=== PATIENT | female | born 1975 | race Caucasian/White ===

== ENCOUNTER 2018-06-30 16:10 | Emergency (ER) | payer SELFPAY ==
--- NOTE | 2018-06-30 17:29 | ER Document Report ---
ED Medical Screen (RME) - General Chief Complaint: Abdominal Pain Stated Complaint: ABDOMINAL PAIN,URINARY PAIN Time Seen by Provider: 06/30/18 17:23 Primary Care Provider: DESI VILLANUEVA MD [Primary Care Provider] - Follow up as needed Notes: Patient is a 42-year-old female presents to the emergency department for an hematuria. Patient is also complaining of generalized malodorous vaginal discharge. Patient states she does have an extensive history with urinary tract infections. Patient is denying any vomiting or fever. Patient states "I think something fell out." States she feels as though she has a bulge near her vagina. Physical exam of genitalia not able to be performed in triage. GENERAL: Alert, interacts well. No acute distress. ABDOMEN: Soft, non-tender. Non-distended. Bowel sounds present in all 4 quadrants. I have greeted and performed a rapid initial assessment of this patient. A comprehensive ED assessment and evaluation of the patient, analysis of test results and completion of the medical decision making process will be conducted by additional ED providers. This medical record was dictated with voice recognizing software. There may be grammatical, syntax errors that are unintended. TRAVEL OUTSIDE OF THE [place] IN LAST 30 DAYS: No - Related Data Allergies/Adverse Reactions: metronidazole [From Flagyl] Allergy (Severe, Verified 06/30/18 16:13) Anaphylaxis Metronidazole HCl [From Flagyl] Allergy (Severe, Verified 06/30/18 16:13) Anaphylaxis trazodone [Trazodone] Allergy (Severe, Verified 06/30/18 16:13) ITCHING/HIVES Past Medical History - Social History Frequency of alcohol use: None Drug Abuse: None - Past Medical History Cardiac Medical History: Reports: Hx Coronary Artery Disease - high cholesterol, Hx Hypercholesterolemia Denies: Hx Hypertension Pulmonary Medical History: Reports: Hx COPD - abcess in lung, Hx Pneumonia Denies: Hx Asthma, Hx Bronchitis Neurological Medical History: Reports: Hx Seizures - LAST ON ABOUT 4 MONTHS AGO. Denies: Hx Cerebrovascular Accident Renal/ Medical History: Denies: Hx Peritoneal Dialysis Musculoskeltal Medical History: Denies Hx Arthritis Past Surgical History: Reports: Hx Hysterectomy - Immunizations Hx Diphtheria, Pertussis, Tetanus Vaccination: No Physical Exam - Vital signs Vitals: Temp Pulse Resp BP Pulse Ox 98.1 F 73 16 127/74 H 100 06/30/18 16:22 06/30/18 16:22 06/30/18 16:22 06/30/18 16:22 06/30/18 16:22 Course - Vital Signs Vital signs: Temp Pulse Resp BP Pulse Ox 98.1 F 73 16 127/74 H 100 06/30/18 16:22 06/30/18 16:22 06/30/18 16:22 06/30/18 16:22 06/30/18 16:22 Doctor's Discharge - Discharge Referrals: DESI VILLANUEVA MD [Primary Care Provider] - Follow up as needed
[2018-06-30 18:07] LABS: APPEARANCE,URINE SLIGHTLY-CLOUDY; BILIRUBIN,URINE NEGATIVE (NEGATIVE); CALCIUM OXALATE CRYSTALS,URINE MODERATE /HPF; COLOR,URINE AMBER; GLUCOSE, URINE NEGATIVE (NEGATIVE); KETONES,URINE TRACE mg/dL (NEGATIVE); LEUKOCYTE ESTERASE,URINE TRACE (NEGATIVE); NITRITE,URINE POSITIVE (NEGATIVE); PROTEIN,URINE 30 mg/dL (NEGATIVE); URINE SPECIFIC GRAVITY 1.028
--- NOTE | 2018-06-30 21:02 | ER Document Report ---
ED GI/ - General Chief Complaint: Abdominal Pain Stated Complaint: ABDOMINAL PAIN,URINARY PAIN Time Seen by Provider: 06/30/18 17:23 Primary Care Provider: DESI VILLANUEVA MD [ACTIVE STAFF] - Follow up as needed Notes: Patient is a 42-year-old female that comes emergency department for chief complaint of discomfort with urination and malodorous vaginal discharge. She states that she gets acute urinary tract infections. She is sexually active. She has had a partial hysterectomy including removal of the cervix. She states she felt like air came out vaginally when she was expecting it to come out rectally but she is not certain of this. She denies seeing any tissue prolapsed out of the vagina. She denies abdominal pain, flank pain, fever/chills, nausea/vomiting. TRAVEL OUTSIDE OF THE [place] IN LAST 30 DAYS: No - Related Data Allergies/Adverse Reactions: metronidazole [From Flagyl] Allergy (Severe, Verified 06/30/18 16:13) Anaphylaxis Metronidazole HCl [From Flagyl] Allergy (Severe, Verified 06/30/18 16:13) Anaphylaxis trazodone [Trazodone] Allergy (Severe, Verified 06/30/18 16:13) ITCHING/HIVES Past Medical History - General Information source: Patient - Social History Smoking Status: Current Every Day Smoker Smoking Education Provided: Yes - <3 min Frequency of alcohol use: None Drug Abuse: None Lives with: Family Family History: Reviewed & Not Pertinent, Other Patient has suicidal ideation: No Patient has homicidal ideation: No - Past Medical History Cardiac Medical History: Reports: Hx Coronary Artery Disease - high cholesterol, Hx Hypercholesterolemia Denies: Hx Hypertension Pulmonary Medical History: Reports: Hx COPD - abcess in lung, Hx Pneumonia Denies: Hx Asthma, Hx Bronchitis Neurological Medical History: Reports: Hx Seizures - LAST ON ABOUT 4 MONTHS AGO. Denies: Hx Cerebrovascular Accident Renal/ Medical History: Denies: Hx Peritoneal Dialysis Musculoskeletal Medical History: Denies Hx Arthritis Past Surgical History: Reports: Hx Hysterectomy - Immunizations Immunizations up to date: Yes Hx Diphtheria, Pertussis, Tetanus Vaccination: Yes Hx Pneumococcal Vaccination: 12/06/08 Review of Systems - Review of Systems Constitutional: No symptoms reported EENT: No symptoms reported Cardiovascular: No symptoms reported Respiratory: No symptoms reported Gastrointestinal: See HPI Genitourinary: See HPI Female Genitourinary: See HPI Musculoskeletal: No symptoms reported Skin: No symptoms reported Hematologic/Lymphatic: No symptoms reported Neurological/Psychological: No symptoms reported Physical Exam - Vital signs Vitals: Temp Pulse Resp BP Pulse Ox 98.1 F 73 16 127/74 H 100 06/30/18 16:22 06/30/18 16:22 06/30/18 16:22 06/30/18 16:22 06/30/18 16:22 - Notes Notes: GENERAL: Alert, interacts well. No acute distress. HEAD: Normocephalic, atraumatic. EYES: Pupils equal, round, and reactive to light. Extraocular movements intact. ENT: Oral mucosa moist, tongue midline. Oropharynx unremarkable. Airway patent. NECK: Full range of motion. Supple. Trachea midline. LUNGS: Clear to auscultation bilaterally, no wheezes, rales, or rhonchi. No respiratory distress. HEART: Regular rate and rhythm. No murmur ABDOMEN: Soft, non-tender. Non-distended. Bowel sounds present in all 4 quadrants. GENITOURINARY: External exam with no concerning findings. Vaginal exam shows whitish vaginal discharge, no tenderness, no lesions, otherwise unremarkable. Cuff is intact. Exam performed with Inez RN at bedside. EXTREMITIES: Moves all 4 extremities spontaneously. No edema, normal radial and dorsalis pedis pulses bilaterally. No cyanosis. BACK: no cervical, thoracic, lumbar midline tenderness. No saddle anesthesia, normal distal neurovascular exam. NEUROLOGICAL: Alert and oriented x3. Normal speech. Cranial nerves II through XII grossly intact. PSYCH: Normal affect, normal mood. SKIN: Warm, dry, normal turgor. No rashes or lesions noted. Course - Re-evaluation Re-evalutation: Nontender abdomen. Unremarkable vitals. Patient is well-appearing. Physical examination is most consistent with bacterial vaginosis, there is no evidence of disruption of the cuff status post hysterectomy, there is no evidence of prolapse. Urine does suggest an infection, culture placed, placed on Keflex. What also is consistent with bacterial vaginosis, pelvic exam otherwise unremarkable. Discussed with patient, discussed treatment options, patient is allergic to Flagyl, given topical clindamycin. Discussed expectations, primary care follow-up, return precautions. She states understanding and agreement. - Vital Signs Vital signs: Temp Pulse Resp BP Pulse Ox 97.7 F 72 16 121/67 99 06/30/18 22:50 06/30/18 22:50 06/30/18 22:50 06/30/18 22:50 06/30/18 22:50 - Laboratory Laboratory results interpreted by me: 06/30/18 16:35 Urine Protein 30 H Urine Ketones TRACE H Urine Blood SMALL H Urine Nitrite POSITIVE H Urine Urobilinogen 4.0 H Ur Leukocyte Esterase TRACE H Discharge - Discharge Clinical Impression: Dysuria, Vaginal discharge, Vaginal symptom Condition: Stable Disposition: HOME, SELF-CARE Additional Instructions: Your evaluation is consistent with bacterial vaginosis and a urinary tract infection. Use the topical to treat the bacterial vaginosis, use the Keflex to treat the urinary tract infection. Follow-up with primary care for additional evaluation and management. Return if you worsen including abdominal pain, vomiting, fever/chills, or any other concerning symptoms. Prescriptions: Cephalexin Monohydrate [Keflex 500 mg Capsule] 500 mg PO BID 7 Days #14 capsule Clindamycin Phosphate [Cleocin] 40 gm VG ASDIR PRN #1 [email or web address] PRN Reason: Referrals: DESI VILLANUEVA MD [ACTIVE STAFF] - Follow up as needed
[2018-06-30 21:30] LABS: BACTERIA (WET MOUNT) 4+ BACTERIA SEEN; EPITHELIALS (WET MOUNT) 4+ EPITHELIALS SEEN; RBCS (WET MOUNT) NO RBCS SEEN; T.VAGINALIS (WET MOUNT) NO TRICHOMONAS SEEN; WBCS (WET MOUNT) RARE WBCS SEEN; YEAST (WET MOUNT) NO YEAST SEEN
[2018-06-30] MEDS ORDERED: CEPHALEXIN 500 MG CAPSULE PO ONE (21:48)
[2018-06-30 22:57] VITALS: BP 121/67
[2018-06-30 22:57] LABS: CHLAM PCR NOT DETECTED (NOT DETECT); GON PCR NOT DETECTED (NOT DETECT)
== END 2018-06-30 22:50 | disposition home or self-care (01) ==
LOC: ER 16:10
DX: R30.0 Dysuria (principal); N89.8 Other specified noninflammatory disorders of vagina; F17.200 Nicotine dependence, unspecified, uncomplicated; I25.10 Atherosclerotic heart disease of native coronary artery without angina pectoris; J44.9 Chronic obstructive pulmonary disease, unspecified; Z87.440 Personal history of urinary (tract) infections; Z90.711 Acquired absence of uterus with remaining cervical stump; Z88.1 Allergy status to other antibiotic agents; Z88.8 Allergy status to other drugs, medicaments and biological substances
CPT/HCPCS: 81001; 87086; 87088; 87186; 87210; 87491; 87591; 99283

== ENCOUNTER 2018-09-05 09:09 | Emergency (ER) | payer SELFPAY ==
--- NOTE | 2018-09-05 09:21 | ER Document Report ---
ED Medical Screen (RME) - General Chief Complaint: Suicidal Ideation Stated Complaint: PSYCH EVAL Time Seen by Provider: 09/05/18 09:18 Mode of Arrival: Ambulatory Information source: Patient Notes: Patient reports history of depression. Patient not currently taking any medications. Patient reports having thoughts of suicide and a plan to I have greeted and performed a rapid initial assessment of this patient. A comprehensive ED assessment and evaluation of the patient, analysis of test results and completion of the medical decision making process will be conducted by additional ED providers. Overdose. TRAVEL OUTSIDE OF THE [place] IN LAST 30 DAYS: No - Related Data Allergies/Adverse Reactions: metronidazole [From Flagyl] Allergy (Severe, Verified 09/05/18 09:09) Anaphylaxis Metronidazole HCl [From Flagyl] Allergy (Severe, Verified 09/05/18 09:09) Anaphylaxis trazodone [Trazodone] Allergy (Severe, Verified 09/05/18 09:09) ITCHING/HIVES Past Medical History - Past Medical History Cardiac Medical History: Reports: Hx Coronary Artery Disease - high cholesterol, Hx Hypercholesterolemia Denies: Hx Hypertension Pulmonary Medical History: Reports: Hx COPD - abcess in lung, Hx Pneumonia Denies: Hx Asthma, Hx Bronchitis Neurological Medical History: Reports: Hx Seizures - LAST ON ABOUT 4 MONTHS AGO. Denies: Hx Cerebrovascular Accident Renal/ Medical History: Denies: Hx Peritoneal Dialysis Musculoskeltal Medical History: Denies Hx Arthritis Past Surgical History: Reports: Hx Hysterectomy - Immunizations Immunizations up to date: Yes Hx Diphtheria, Pertussis, Tetanus Vaccination: Yes Physical Exam - Vital signs Vitals: Temp Pulse Resp BP Pulse Ox 98.6 F 86 16 121/75 99 09/05/18 09:12 09/05/18 09:12 09/05/18 09:12 09/05/18 09:12 09/05/18 09:12 - Psychological Associated symptoms: Depressed, Tearful Course - Vital Signs Vital signs: Temp Pulse Resp BP Pulse Ox 98.6 F 86 16 121/75 99 09/05/18 09:12 09/05/18 09:12 09/05/18 09:12 09/05/18 09:12 09/05/18 09:12
[2018-09-05 09:46] LABS: ABSOLUTE BASOPHILS # (AUTO) 0.1 10^3/uL (0.0-0.2); ABSOLUTE EOSINOPHILS # (AUTO) 0.1 10^3/uL (0.0-0.6); ABSOLUTE LYMPHOCYTES (AUTO) 1.9 10^3/uL (0.5-4.7); ABSOLUTE MONOCYTES (AUTO) 0.5 10^3/uL (0.1-1.4); ABSOLUTE NEUT (AUTO) 8.9 10^3/uL (1.7-8.2); EOSINOPHILS % (AUTO) 0.8 % (0-6); HEMATOCRIT 47.1 % (36.0-47.0); LYMPHOCYTES % (AUTO) 16.4 % (13-45); MEAN CORPUSCULAR HEMOGLOBIN 30.9 pg (27.0-33.4); MEAN CORPUSCULAR VOLUME 91 fl (80-97); MONOCYTES % (AUTO) 4.5 % (3-13); PLATELET COUNT 270 10^3/uL (150-450); RED BLOOD COUNT 5.18 10^6/uL (3.72-5.28); RED CELL DISTRIBUTION WIDTH 13.5 % (11.5-14.0); SEGMENTED NEUTROPHILS % (AUTO) 77.3 % (42-78); TOTAL CELLS COUNTED % (AUTO) 100 %; WHITE BLOOD COUNT 11.5 10^3/uL (4.0-10.5)
[2018-09-05 09:50] LABS: APPEARANCE,URINE SLIGHTLY-CLOUDY; BILIRUBIN,URINE NEGATIVE (NEGATIVE); COLOR,URINE YELLOW; GLUCOSE, URINE NEGATIVE (NEGATIVE); KETONES,URINE NEGATIVE (NEGATIVE); LEUKOCYTE ESTERASE,URINE TRACE (NEGATIVE); NITRITE,URINE NEGATIVE (NEGATIVE); PROTEIN,URINE NEGATIVE (NEGATIVE); URINE SPECIFIC GRAVITY 1.017
[2018-09-05 10:11] LABS: URINE AMPHETAMINES SCREEN NEGATIVE; URINE BARBITURATES SCREEN NEGATIVE; URINE BENZODIAZEPINES SCREEN UNCONFIRMED POSITIVE; URINE COCAINE SCREEN NEGATIVE; URINE MARIJUANA (THC) SCREEN UNCONFIRMED POSITIVE; URINE METHADONE SCREEN NEGATIVE; URINE PHENCYCLIDINE SCREEN NEGATIVE
[2018-09-05 10:15] LABS: CHLORIDE 104 mmol/L (98-107); POTASSIUM 4.4 mmol/L (3.6-5.0)
[2018-09-05 10:27] LABS: ACETAMINOPHEN < 10 ug/mL (10-30); ALANINE AMINOTRANSFERASE 12 U/L (9-52); ALBUMIN 4.8 g/dL (3.5-5.0); ALCOHOL < 10 mg/dL (NONE DETECTED); ALKALINE PHOSPHATASE 56 U/L (38-126); ANION GAP 11 (5-19); ASPARTATE AMINO TRANSFERASE 15 U/L (14-36); BILIRUBIN,DIRECT 0.3 mg/dL (0.0-0.4); BILIRUBIN,TOTAL 0.7 mg/dL (0.2-1.3); BLOOD UREA NITROGEN 7 mg/dL (7-20); CALCIUM 9.8 mg/dL (8.4-10.2); CARBON DIOXIDE 26 mmol/L (22-30); GLUCOSE 128 mg/dL (75-110); SALICYLATE < 1.0 mg/dL (2.0-20.0); TOTAL PROTEIN 7.8 g/dL (6.3-8.2)
--- NOTE | 2018-09-05 10:31 | ER Document Report ---
Addendum entered and electronically signed by MARLENE CHAVARRIA MD 09/06/18 10:59: Course - Re-evaluation Re-evalutation: 09/06/18 10:58 Patient was seen by the psychiatric crisis counselors who discussed at length with her the anxiety and depression and her previous suicidal thoughts. The patient contracts for safety, and she is agreeable to outpatient follow-up and care and an appointment has been made. Patient does not meet involuntary commitment criteria at current time. Patient has a supportive home to go to, and her is also supportive. - Vital Signs Vital signs: Temp Pulse Resp BP Pulse Ox 98.5 F 76 18 110/74 98 09/06/18 07:43 09/06/18 07:43 09/06/18 07:43 09/06/18 07:43 09/06/18 07:43 - Laboratory Result Diagrams: 09/05/18 09:30 09/05/18 09:30 Laboratory results interpreted by me: 09/05/18 09/05/18 09/05/18 09:30 09:30 09:30 WBC 11.5 H Hgb 16.0 H Hct 47.1 H Absolute Neutrophils 8.9 H Glucose 128 H Urine Urobilinogen 2.0 H Ur Leukocyte Esterase TRACE H Salicylates < 1.0 L Acetaminophen < 10 L Original Note: Entered by MARLENE BYRNE SCRIBE 09/05/18 0958 Acting as scribe for:VANE SABILLON MD ED General - General Mode of Arrival: Ambulatory TRAVEL OUTSIDE OF THE [place] IN LAST 30 DAYS: No <VANE SABILLON - Last Filed: 09/05/18 14:38> <SHARIF ARTHUR - Last Filed: 09/06/18 10:30> <MARLENE CHAVARRIA - Last Filed: 09/06/18 10:58> - General Chief Complaint: Suicidal Ideation Stated Complaint: PSYCH EVAL Time Seen by Provider: 09/05/18 09:18 Primary Care Provider: [facility] [Provider Group] - 09/12/18 8:00 am [facility] [Outside] - Follow up as needed Notes: Patient is a 43-year-old female presenting to the emergency department with suicidal ideations. Patient states that she thought about taking her spouse's Xanax and she has been depressed but she did not take them. at bedside states that she has been experiencing anxiety and a "racing heart" for a few weeks now. Patient states that she only gets 2 to 3 hours of sleep every night for the past few years, and that she has had chronic depression for years now. Patient states that she used to have seizures but is been sometime since she has had on, states that her last one was about 5 months ago. Patient states that she had high cholesterol many years ago and does not anymore. Patient denies ever having hypertension. Patient states that about 10 years ago she was hospitalized here for a pulmonary abscess. Nurses note states that patient also reported homicidal ideations for her . (MARLENE BYRNE) Patient is a 43-year-old female presenting to the emergency department with suicidal ideations. Patient states that she thought about taking her spouse's Xanax and she has been depressed but she did not take them. at bedside states that she has been experiencing anxiety and a "racing heart" for a few weeks now. Patient states that she only gets 2 to 3 hours of sleep every night for the past few years, and that she has had chronic depression for years now. Patient states that she used to have seizures but is been sometime since she has had on, states that her last one was about 5 months ago. Patient stat es that she had high cholesterol many years ago and does not anymore. Patient denies ever having hypertension. Patient states that about 10 years ago she was hospitalized here for a pulmonary abscess. Nurses note states that patient also reported homicidal ideations for her . (VANE SABILLON) - Related Data Allergies/Adverse Reactions: metronidazole [From Flagyl] Allergy (Severe, Verified 09/05/18 09:09) Anaphylaxis Metronidazole HCl [From Flagyl] Allergy (Severe, Verified 09/05/18 09:09) Anaphylaxis trazodone [Trazodone] Allergy (Severe, Verified 09/05/18 09:09) ITCHING/HIVES Past Medical History - General Information source: Patient - Social History Smoking Status: Current Every Day Smoker Frequency of alcohol use: Social Drug Abuse: Marijuana Family History: Reviewed & Not Pertinent, Other Patient has suicidal ideation: Yes Patient has homicidal ideation: Yes - Past Medical History Cardiac Medical History: Reports: Hx Coronary Artery Disease - high cholesterol, Hx Hypercholesterolemia Pulmonary Medical History: Reports: Hx COPD - abcess in lung, Hx Pneumonia Neurological Medical History: Reports: Hx Seizures - LAST ON ABOUT 4 MONTHS AGO Skin Medical History: Reports Other - subcutaneous Psychiatric Medical History: Reports: Hx Depression Past Surgical History: Reports: Hx Hysterectomy - Immunizations Immunizations up to date: Yes Hx Diphtheria, Pertussis, Tetanus Vaccination: Yes Hx Pneumococcal Vaccination: 12/06/08 <RAMANDEEP,VANE - Last Filed: 09/05/18 14:38> Review of Systems - Review of Systems Constitutional: No symptoms reported EENT: No symptoms reported Cardiovascular: No symptoms reported Respiratory: No symptoms reported Gastrointestinal: No symptoms reported Genitourinary: No symptoms reported Female Genitourinary: No symptoms reported Musculoskeletal: No symptoms reported Skin: No symptoms reported Hematologic/Lymphatic: No symptoms reported Neurological/Psychological: See HPI, Depression, Anxiety -: Yes All other systems reviewed and negative <VANE SABILLON - Last Filed: 09/05/18 14:38> Physical Exam <VANE SABILLON - Last Filed: 09/05/18 14:38> - Vital signs Vitals: Temp Pulse Resp BP Pulse Ox 98.6 F 86 16 121/75 99 09/05/18 09:12 09/05/18 09:12 09/05/18 09:12 09/05/18 09:12 09/05/18 09:12 - Notes Notes: Physical Exam: General: Alert, anxious, shaky, excessively heart, thin. HEENT: Normocephalic. Atraumatic. PERRL. Extraocular movements intact. Oropharynx clear. Neck: Supple. Non-tender. Respiratory: No respiratory distress. Rhonchi bilaterally. Cardiovascular: Regular rate and rhythm. Abdominal: Normal Inspection. Non-tender. No distension. Normal Bowel Sounds. Back: Non-tender. No deformity or step off. Extremities: Moves all four extremities. Upper extremities: Normal inspection. Normal ROM. Lower extremities: Normal inspection. No edema. Normal ROM. Neurological: Normal cognition. AAOx4. Normal speech. Psychological: Normal affect. Normal Mood. Skin: Warm. Dry. Normal color. (MARLENE BYRNE) Physical Exam: General: Alert, anxious, shaky, excessively heart, thin. HEENT: Normocephalic. Atraumatic. PERRL. Extraocular movements intact. Oropharynx clear. Neck: Supple. Non-tender. Respiratory: No respiratory distress. Rhonchi bilaterally. Cardiovascular: Regular rate and rhythm. Abdominal: Normal Inspection. Non-tender. No distension. Normal Bowel Sounds. Back: Non-tender. No deformity or step off. Extremities: Moves all four extremities. Upper extremities: Normal inspection. Normal ROM. Lower extremities: Normal inspection. No edema. Normal ROM. Neurological: Normal cognition. AAOx4. Normal speech. Psychological: Normal affect. Normal Mood. Skin: Warm. Dry. Normal color. (VANE SABILLON) Course - Laboratory Result Diagrams: 09/05/18 09:30 09/05/18 09:30 <VANE SABILLON - Last Filed: 09/05/18 14:38> - Laboratory Result Diagrams: 09/05/18 09:30 09/05/18 09:30 <SHARIF ARTHUR - Last Filed: 09/06/18 10:30> - Laboratory Result Diagrams: 09/05/18 09:30 09/05/18 09:30 <MARLENE CHAVARRIA - Last Filed: 09/06/18 10:58> - Vital Signs Vital signs: Temp Pulse Resp BP Pulse Ox 98.5 F 76 18 110/74 98 09/06/18 07:43 09/06/18 07:43 09/06/18 07:43 09/06/18 07:43 09/06/18 07:43 - Laboratory Laboratory results interpreted by me: 09/05/18 09/05/18 09/05/18 09:30 09:30 09:30 WBC 11.5 H Hgb 16.0 H Hct 47.1 H Absolute Neutrophils 8.9 H Glucose 128 H Urine Urobilinogen 2.0 H Ur Leukocyte Esterase TRACE H Salicylates < 1.0 L Acetaminophen < 10 L Discharge <VNAE SABILLON - Last Filed: 09/05/18 14:38> <SHARIF ARTHUR - Last Filed: 09/06/18 10:30> <MARLENE CHAVARRIA - Last Filed: 09/06/18 10:58> - Discharge Clinical Impression: Suicidal ideation, Marijuana abuse, Benzodiazepine abuse, History of bipolar disorder, Noncompliance with medication regimen, Homicidal ideation Depression Qualifiers: Depression Type: unspecified Qualified Code(s): F32.9 - Major depressive disorder, single episode, unspecified Condition: Stable Disposition: HOME, SELF-CARE Additional Instructions: You have been evaluated by both medical and behavioral health providers while in the emergency department. You have been cleared from both acute medical and psychiatric services. It is felt that due to noncompliance with medication for Bipolar Disorder, use of substances such as cannabis and increased relational stress with separation Bipolar symptoms became prominent. You should take your prescribed medication as directed, avoid use of alcohol and other drugs and follow up with outpatient provider for ongoing care. Bipolar Disorder Bipolar disorder is also called manic-depressive disorder. Depression alternates with brain hyperactivity called tessy. Each phase lasts from several days to a few weeks. We don't know exactly what causes bipolar disorder, but it's treatable. During the "manic phase," you may feel elated and energetic. You may have racing thoughts, rapid speech, increased activity, and grandiose ideas. During this time, you may not realize how poor your judgement is. Inappropriate spending, drug abuse, excessive alcohol use, marriage problems, and irres ponsible sexual behavior are common during the manic phase. During the "depressive phase," you might feel depressed, guilty, worthless, fatigued, and unable to concentrate. You might have thoughts of suicide. Good treatments are available for bipolar disorder. [place] is a classic drug for bipolar disorder, and is still often useful. If the manic phase is very mild, an antidepressant alone can be prescribed. If the manic phase is very severe, an antipsychotic medicine (such as Haldol) may be needed. The treatment must be matched to your symptoms, so it's important to work closely with your psychiatric care provider. Contact your physician, the hospital emergency center, crisis line, or your counsellor if you are losing control or having self-destructive thoughts. SUICIDAL IDEATION: Suicidal ideation is a common medical term for thoughts about suicide, wh ich may be as detailed as a formulated plan, without the suicidal act itself. Although most people who undergo suicidal ideation do not commit suicide, some go on to make suicide attempts. The range of suicidal ideation varies greatly from fleeting to detailed planning, role playing, and unsuccessful attempts. While thoughts about suicide are common, most people do not carry out serious actions to commit suicide. Based upon your evaluation and discussion with you, we do not believe you are currently at risk to act upon your thoughts of suicide. You have agreed to return to the Emergency Department, at any time, if you feel inclined to act upon your suicidal thoughts. CANNABIS ABUSE: Also referred to as weed, marijuana and other names. It is mind altering, impairs cognition and inhibits individuals. It can interfere with other medication effectiveness. In individual with mental health disorders it can cause and/or exacerbate symptoms (psychosis, paranoia, anxiety and others). Benzodiazepine Abuse: You should never take medication not prescribed to you. These types of medica tions are considered controlled substances and are very addictive in nature. FOLLOW-UP CARE: You have been administered and provided a prescription for Zyprexa 2.5MG twice a day for mood stabilization/impulse control and Buspar 5MG twice a day for anxiety/calming effect/depression/sleep. You have a follow up appointment scheduled with [facility] on 09/12/18 at 0800. You have been provided the [facility] Mobile Crisis number for crisis/talk therapy/linkage to other supports and services. If you experience worsening or a significant change in your symptoms, notify the physician immediately, utilize mobile crisis or return to the Emergency Department at any time for re-evaluation. Prescriptions: Buspirone HCl [Buspar 5 mg Tablet] 1 tab PO BID #30 tab Olanzapine [Zyprexa 2.5 Mg Tablet] 2.5 mg PO BID #30 tablet Referrals: [facility] [Outside] - Follow up as needed [facility] [Provider Group] - 09/12/18 8:00 am Scribe Attestation: 09/05/18 10:30 I personally performed the services described in the documentation, reviewed and edited the documentation which was dictated to the scribe in my presence, and it accurately records my words and actions. (VANE SABILLNO) I personally performed the services described in the documentation, reviewed and edited the documentation which was dictated to the scribe in my presence, and it accurately records my words and actions.
[2018-09-05] MEDS ORDERED: OLANZAPINE 2.5 MG TABLET PO STA (14:35)
[2018-09-05] MEDS ORDERED: BUSPIRONE HCL 10 MG TABLET PO STA (14:37)
--- NOTE | 2018-09-05 16:32 | PSYCHOLOGICAL NOTE ---
Psych Note - Psych Note Date seen by psych provider: 09/05/18 Psych Note: Presenting Problem: SI, HI, Hx Bipolar, no medications for past 2 years, psychosis- paranoia. UDS positive for Benzodiazepines and Cannabis. Patient admitted to regular marijuana use but trying to quit because makes things worse lately and took one of her soon to be ex 's Xanax a day or so ago due to anxiety. Patient presented manic with pressured speech, wide eyes and fidgety. Soon to be ex reported patient thinks people are out to get her. Diagnosis: Polysubsatnce Abuse Anxiolytic Cannabis Noncompliance with medication Unspecified Bipolar and Related Disorder by history per patient Medication recommendations made by the psychiatric medical provider, Dr. Silverio MD., includes: Add Zyprexa 2.5MG twice a day for mood stabilization/impulse control Add Buspar 5MG twice a day for anxiety/calming effect/depression/sleep Impression/Plan: Recommendation for 24 Hour IVC Petition. Patient reported history of Bipolar and being off medication for 2 years. noted she has made HI threats towards him/no action, SI threats, she thinks people are out to get her/doesn't trust anyone (paranoia/persecutory delusions-psychosis) and increased anxiety. Plan is to start medication regimen, make sure she tolerates it well and reassess in the morning. Consulted with Dr. Atkins regarding the management and care of patient. ED Physician in agreement with recommendations.
--- NOTE | 2018-09-06 00:36 | EKG REPORT ---
SEVERITY:- ABNORMAL ECG - SINUS RHYTHM PROBABLE LEFT ATRIAL ABNORMALITY PROBABLE INFERIOR INFARCT, OLD : Confirmed by: Osvaldo Roche 06-Sep-2018 00:35:58
[2018-09-06 07:44] VITALS: BP 110/74
[2018-09-06] MEDS ORDERED: OLANZAPINE 2.5 MG TABLET PO SCH (10:00)
[2018-09-06] MEDS ORDERED: BUSPIRONE HCL 10 MG TABLET PO SCH (10:00)
--- NOTE | 2018-09-06 11:21 | PSYCHOLOGICAL NOTE ---
Psych Note - Psych Note Date seen by psych provider: 09/06/18 Psych Note: Presenting Problem: SI, HI, Hx Bipolar, no medications for past 2 years, psychosis- paranoia. UDS positive for Benzodiazepines and Cannabis. Patient admitted to regular marijuana use but trying to quit because makes things worse lately and took one of her soon to be ex 's Xanax a day or so ago due to anxiety. Patient less manic today, with linear thoughts, able to carry on dialogue conversation and oriented to self/person/place/time/situation. She was able to identify soon to be ex causes her increased anxiety. Diagnosis: Polysubsatnce Abuse Anxiolytic Cannabis Noncompliance with medication Unspecified Bipolar and Related Disorder by history per patient Impression/Plan: Patient is cleared from acute psychiatric services. Recommendation to rescind 24 Hour IVC Petition. She was started on medications (Zyprexa and Buspar) yesterday, was able to get sleep, is less manic, with linear thinking and able to carry on dialogue conversation. She denied SI/HI and has been consistent with these since arrival to the ED. She explained soon to be ex "makes me want to hurt him, I have never tried and I can't see myself taking action." No observed psychosis that seemed to interfere with ability to express self and wants/needs. She has follow up appointment scheduled with [facility] [place] on 09/12/18 at 0800. She was provided with the outpatient resource sheet which documented appointment date and time, as well as highlighted IFS MCM for crisis/talk therapy/linkage to other supports and services. Consulted with Dr. Atkins regarding the management and care of patient. ED Physician in agreement with recommendations.
== END 2018-09-06 11:11 | disposition home or self-care (01) ==
LOC: ER 09:09
DX: R45.851 Suicidal ideations (principal); F41.9 Anxiety disorder, unspecified; R45.850 Homicidal ideations; F12.10 Cannabis abuse, uncomplicated; F19.10 Other psychoactive substance abuse, uncomplicated; F32.9 Major depressive disorder, single episode, unspecified; F17.200 Nicotine dependence, unspecified, uncomplicated; Z91.14 Patient's other noncompliance with medication regimen; E78.00 Pure hypercholesterolemia, unspecified; Z90.710 Acquired absence of both cervix and uterus
CPT/HCPCS: 93005; 99285; 36415; 80307 ×4; 84443; 84703; 85025; 80053; 81001; 93010; J3490 ×2

== ENCOUNTER 2018-09-07 17:14 | Emergency (ER) | payer SELFPAY ==
--- NOTE | 2018-09-07 17:43 | ER Document Report ---
ED Medical Screen (RME) - General Chief Complaint: Psych Problem Stated Complaint: PSYCH EVAL/MEDICATION ISSUE Time Seen by Provider: 09/07/18 17:29 Mode of Arrival: Ambulatory Information source: Patient TRAVEL OUTSIDE OF THE [place] IN LAST 30 DAYS: No - HPI Notes: 09/07/18 17:44 43-year-old female presents to the ED for evaluation of paranoia, racing th oughts, feeling that those are plotting against her. Patient was seen approximately 2 days ago by mental health team in the ED for bipolar disorder, placed on Zyprexa and BuSpar. Patient has had exacerbations of her paranoia and schizophrenic-like tendencies, call the mobile crisis team today, they did come to her house. Due to the medications not working properly, mobile health team did come with her to ER for reevaluation. Patient denies any homicidal or suicidal ideation currently but when she is having paranoid thoughts she also "feels attacked" and states she feels like she may her her partner. Denies any illicit drug use or substance abuse. lungs; CTA CV: s1s2 regular AAO x 3. I have greeted and performed a rapid initial assessment of this patient. A comprehensive ED assessment and evaluation of the patient, analysis of test results and completion of medical decision making process will be conducted by an additional ED providers. - Related Data Allergies/Adverse Reactions: metronidazole [From Flagyl] Allergy (Severe, Verified 09/07/18 17:15) Anaphylaxis Metronidazole HCl [From Flagyl] Allergy (Severe, Verified 09/07/18 17:15) Anaphylaxis trazodone [Trazodone] Allergy (Severe, Verified 09/07/18 17:15) ITCHING/HIVES Past Medical History - Past Medical History Cardiac Medical History: Reports: Hx Coronary Artery Disease - high cholesterol, Hx Hypercholesterolemia Denies: Hx Hypertension Pulmonary Medical History: Reports: Hx COPD - abcess in lung, Hx Pneumonia Denies: Hx Asthma, Hx Bronchitis Neurological Medical History: Reports: Hx Seizures - LAST ON ABOUT 4 MONTHS AGO. Denies: Hx Cerebrovascular Accident Renal/ Medical History: Denies: Hx Peritoneal Dialysis Musculoskeltal Medical History: Denies Hx Arthritis Psychiatric Medical History: Reports: Hx Depression Past Surgical History: Reports: Hx Hysterectomy - Immunizations Immunizations up to date: Yes Hx Diphtheria, Pertussis, Tetanus Vaccination: Yes Physical Exam - Vital signs Vitals: Temp Pulse Resp BP Pulse Ox 98.2 F 87 16 121/73 99 09/07/18 17:22 09/07/18 17:22 09/07/18 17:22 09/07/18 17:22 09/07/18 17:22 Course - Vital Signs Vital signs: Temp Pulse Resp BP Pulse Ox 98.2 F 87 16 121/73 99 09/07/18 17:22 09/07/18 17:22 09/07/18 17:22 09/07/18 17:22 09/07/18 17:22
[2018-09-07 18:40] LABS: ABSOLUTE BASOPHILS # (AUTO) 0.1 10^3/uL (0.0-0.2); ABSOLUTE EOSINOPHILS # (AUTO) 0.1 10^3/uL (0.0-0.6); ABSOLUTE LYMPHOCYTES (AUTO) 3.2 10^3/uL (0.5-4.7); ABSOLUTE MONOCYTES (AUTO) 0.7 10^3/uL (0.1-1.4); ABSOLUTE NEUT (AUTO) 8.1 10^3/uL (1.7-8.2); HEMATOCRIT 44.6 % (36.0-47.0); HEMOGLOBIN 15.2 g/dL (12.0-15.5); LYMPHOCYTES % (AUTO) 26.2 % (13-45); MEAN CORPUSCULAR HEMOGLOBIN 31.2 pg (27.0-33.4); MEAN CORPUSCULAR HGB CONC 34.1 g/dL (32.0-36.0); MEAN CORPUSCULAR VOLUME 91 fl (80-97); MONOCYTES % (AUTO) 5.4 % (3-13); PLATELET COUNT 256 10^3/uL (150-450); RED BLOOD COUNT 4.88 10^6/uL (3.72-5.28); RED CELL DISTRIBUTION WIDTH 13.4 % (11.5-14.0); SEGMENTED NEUTROPHILS % (AUTO) 66.4 % (42-78); TOTAL CELLS COUNTED % (AUTO) 100 %; WHITE BLOOD COUNT 12.2 10^3/uL (4.0-10.5)
[2018-09-07 18:45] LABS: APPEARANCE,URINE SLIGHTLY-CLOUDY; BILIRUBIN,URINE NEGATIVE (NEGATIVE); COLOR,URINE YELLOW; GLUCOSE, URINE NEGATIVE (NEGATIVE); KETONES,URINE NEGATIVE (NEGATIVE); LEUKOCYTE ESTERASE,URINE NEGATIVE (NEGATIVE); NITRITE,URINE NEGATIVE (NEGATIVE); PROTEIN,URINE NEGATIVE (NEGATIVE); URINE SPECIFIC GRAVITY 1.017
[2018-09-07 18:57] LABS: URINE AMPHETAMINES SCREEN NEGATIVE; URINE BARBITURATES SCREEN NEGATIVE; URINE BENZODIAZEPINES SCREEN NEGATIVE; URINE COCAINE SCREEN NEGATIVE; URINE MARIJUANA (THC) SCREEN UNCONFIRMED POSITIVE; URINE METHADONE SCREEN NEGATIVE; URINE PHENCYCLIDINE SCREEN NEGATIVE
[2018-09-07 18:58] LABS: ALANINE AMINOTRANSFERASE 14 U/L (9-52); ALKALINE PHOSPHATASE 54 U/L (38-126); ANION GAP 11 (5-19); ASPARTATE AMINO TRANSFERASE 15 U/L (14-36); BILIRUBIN,DIRECT 0.3 mg/dL (0.0-0.4); BILIRUBIN,TOTAL 0.6 mg/dL (0.2-1.3); BLOOD UREA NITROGEN 11 mg/dL (7-20); CARBON DIOXIDE 28 mmol/L (22-30); CHLORIDE 102 mmol/L (98-107); GLUCOSE 80 mg/dL (75-110); POTASSIUM 4.4 mmol/L (3.6-5.0); SODIUM 140.5 mmol/L (137-145)
[2018-09-07 18:59] LABS: ACETAMINOPHEN < 10 ug/mL (10-30); ALCOHOL < 10 mg/dL (NONE DETECTED); SALICYLATE < 1.0 mg/dL (2.0-20.0)
--- NOTE | 2018-09-07 19:31 | ER Document Report ---
ED Psych Disorder / Suicide - General Chief Complaint: Psych Problem Stated Complaint: PSYCH EVAL/MEDICATION ISSUE Time Seen by Provider: 09/07/18 17:29 Primary Care Provider: DELIA MCARTHUR, PHD [NO LOCAL MD] - Follow up as needed Mode of Arrival: Ambulatory TRAVEL OUTSIDE OF THE [place] IN LAST 30 DAYS: No - HPI Patient complains to provider of: Other - Depression Onset: Other - Chronic Onset was: Gradual Quality of pain: No pain Suicide Risk Factors: Depressed Situational problems related to: Spouse Normal mood: No Associated symptoms: Depressed Similar symptoms previously: Yes Recently seen / treated by doctor: Yes - Related Data Allergies/Adverse Reactions: metronidazole [From Flagyl] Allergy (Severe, Verified 09/07/18 17:15) Anaphylaxis Metronidazole HCl [From Flagyl] Allergy (Severe, Verified 09/07/18 17:15) Anaphylaxis trazodone [Trazodone] Allergy (Severe, Verified 09/07/18 17:15) ITCHING/HIVES Past Medical History - General Information source: Patient - Social History Smoking Status: Current Every Day Smoker Frequency of alcohol use: None Drug Abuse: None Family History: Reviewed & Not Pertinent, Other Patient has suicidal ideation: No Patient has homicidal ideation: No - Past Medical History Cardiac Medical History: Reports: Hx Coronary Artery Disease - high cholesterol, Hx Hypercholesterolemia Denies: Hx Hypertension Pulmonary Medical History: Reports: Hx COPD - abcess in lung, Hx Pneumonia Denies: Hx Asthma, Hx Bronchitis Neurological Medical History: Reports: Hx Seizures - LAST ON ABOUT 4 MONTHS AGO. Denies: Hx Cerebrovascular Accident Renal/ Medical History: Denies: Hx Peritoneal Dialysis Musculoskeletal Medical History: Denies Hx Arthritis Psychiatric Medical History: Reports: Hx Bipolar Disorder, Hx Depression Past Surgical History: Reports: Hx Hysterectomy - Immunizations Immunizations up to date: Yes Hx Diphtheria, Pertussis, Tetanus Vaccination: Yes Hx Pneumococcal Vaccination: 12/06/08 Review of Systems - Review of Systems Constitutional: No symptoms reported EENT: No symptoms reported Cardiovascular: No symptoms reported Respiratory: No symptoms reported Gastrointestinal: No symptoms reported Genitourinary: No symptoms reported Female Genitourinary: No symptoms reported Musculoskeletal: No symptoms reported Skin: No symptoms reported Hematologic/Lymphatic: No symptoms reported Neurological/Psychological: Depression. denies: Anxiety, Homicidal ideation, Suicidal ideation -: Yes All other systems reviewed and negative Physical Exam - Vital signs Vitals: Temp Pulse Resp BP Pulse Ox 98.2 F 87 16 121/73 99 09/07/18 17:22 09/07/18 17:22 09/07/18 17:22 09/07/18 17:22 09/07/18 17:22 Interpretation: Normal - General General appearance: Appears well, Alert - HEENT Head: Normocephalic, Atraumatic Eyes: Normal Pupils: PERRL - Respiratory Respiratory status: No respiratory distress Chest status: Nontender Breath sounds: Normal Chest palpation: Normal - Cardiovascular Rhythm: Regular Heart sounds: Normal auscultation Murmur: No - Abdominal Inspection: Normal Distension: No distension Bowel sounds: Normal Tenderness: Nontender Organomegaly: No organomegaly - Back Back: Normal, Nontender - Extremities General upper extremity: Normal inspection, Nontender, Normal color, Normal ROM, Normal temperature General lower extremity: Normal inspection, Nontender, Normal color, Normal ROM, Normal temperature, Normal weight bearing. No: Rich's sign - Neurological Neuro grossly intact: Yes Cognition: Normal Orientation: AAOx4 Blayne Coma Scale Eye Opening: Spontaneous Blayne Coma Scale Verbal: Oriented [place] Coma Scale Motor: Obeys Commands Blayne Coma Scale Total: 15 Speech: Normal Motor strength normal: LUE, RUE, LLE, RLE Sensory: Normal - Psychological Associated symptoms: Normal affect, Normal mood - Skin Skin Temperature: Warm Skin Moisture: Dry Skin Color: Normal Course - Vital Signs Vital signs: Temp Pulse Resp BP Pulse Ox 98.4 F 78 16 126/84 H 100 09/07/18 19:45 09/07/18 19:45 09/07/18 19:45 09/07/18 19:45 09/07/18 19:45 - Laboratory Result Diagrams: 09/07/18 18:12 09/07/18 18:12 Laboratory results interpreted by me: 09/07/18 09/07/18 09/07/18 18:12 18:12 18:12 WBC 12.2 H Urine Blood SMALL H Urine Urobilinogen 2.0 H Salicylates < 1.0 L Acetaminophen < 10 L - Transfer of Care Notes: 09/08/18 22:36 Patient has an appointment with a psychiatrist on Wednesday. Discharge - Discharge Clinical Impression: Depression Qualifiers: Depression Type: unspecified Qualified Code(s): F32.9 - Major depressive diso rder, single episode, unspecified Disposition: HOME, SELF-CARE Instructions: Depression ([facility]) Additional Instructions: Please keep your appointment with your psychiatrist on Wednesday. Return to the emergency room for suicide or homicide ideation. Return to the emergency room if your condition worsens. Prescriptions: Escitalopram Oxalate [Lexapro 10 mg Tablet] 10 mg PO QHS #30 tablet Referrals: DELIA MCARTHUR, PHD [NO LOCAL MD] - Follow up as needed
[2018-09-07 20:37] VITALS: BP 126/84
== END 2018-09-07 19:45 | disposition home or self-care (01) ==
LOC: ER 17:14
DX: F32.9 Major depressive disorder, single episode, unspecified (principal); F17.200 Nicotine dependence, unspecified, uncomplicated
CPT/HCPCS: 36415; 80053; 80307; 81001; 85025; 99283

== ENCOUNTER 2019-03-10 09:05 | Emergency (ER) | payer SELFPAY ==
--- NOTE | 2019-03-10 09:44 | ER Document Report ---
ED Medical Screen (RME) - General Chief Complaint: Suicidal Ideation Stated Complaint: PYSCH PROBLEM Time Seen by Provider: 03/10/19 09:34 Notes: Patient is a 43-year-old female who presents to the emergency department with suicidal ideation and an attempt to commit suicide last night. Patient attempted to take Ambien, Xanax, and alcohol to try to kill herself. Patient has had depression for a long time, but is not on medications. 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 Last time she had it evaluated was in 2010. Denies any new numbness, tingling, or weakness. Exam: Tearful. I have greeted and performed a rapid initial assessment of this patient. A comprehensive ED assessment and evaluation of the patient, analysis of test results and completion of medical decision making process will be conducted by an additional ED providers. TRAVEL OUTSIDE OF THE [place] IN LAST 30 DAYS: No - Related Data Allergies/Adverse Reactions: metronidazole [From Flagyl] Allergy (Severe, Verified 03/10/19 09:31) Anaphylaxis Metronidazole HCl [From Flagyl] Allergy (Severe, Verified 03/10/19 09:31) Anaphylaxis trazodone [Trazodone] Allergy (Severe, Verified 03/10/19 09:31) ITCHING/HIVES Past Medical History - Social History Chew tobacco use (# tins/day): No Frequency of alcohol use: Social Drug Abuse: Marijuana - Past Medical History Cardiac Medical History: Reports: Hx Coronary Artery Disease - high cholesterol, Hx Hypercholesterolemia Denies: Hx Hypertension Pulmonary Medical History: Reports: Hx COPD - abcess in lung, Hx Pneumonia Denies: Hx Asthma, Hx Bronchitis Neurological Medical History: Reports: Hx Seizures - LAST ON ABOUT 4 MONTHS AGO. Denies: Hx Cerebrovascular Accident Renal/ Medical History: Denies: Hx Peritoneal Dialysis Musculoskeltal Medical History: Denies Hx Arthritis Psychiatric Medical History: Reports: Hx Bipolar Disorder, Hx Depression Past Surgical History: Reports: Hx Hysterectomy - Immunizations Immunizations up to date: Yes Hx Diphtheria, Pertussis, Tetanus Vaccination: Yes Physical Exam - Vital signs Vitals: Temp Pulse Resp BP Pulse Ox 97.7 F 73 18 123/78 100 03/10/19 09:20 03/10/19 09:20 03/10/19 09:20 03/10/19 09:20 01/03/20 09:20 Course - Vital Signs Vital signs: Temp Pulse Resp BP Pulse Ox 97.7 F 73 18 123/78 100 03/10/19 09:20 03/10/19 09:20 03/10/19 09:20 03/10/19 09:20 03/10/19 09:20
[2019-03-10 10:26] LABS: ABSOLUTE BASOPHILS # (AUTO) 0.1 10^3/uL (0.0-0.2); ABSOLUTE EOSINOPHILS # (AUTO) 0.1 10^3/uL (0.0-0.6); ABSOLUTE LYMPHOCYTES (AUTO) 2.2 10^3/uL (0.5-4.7); ABSOLUTE MONOCYTES (AUTO) 0.6 10^3/uL (0.1-1.4); ABSOLUTE NEUT (AUTO) 6.8 10^3/uL (1.7-8.2); BASOPHILS % (AUTO) 0.6 % (0-2); EOSINOPHILS % (AUTO) 0.9 % (0-6); HEMATOCRIT 45.2 % (36.0-47.0); HEMOGLOBIN 15.8 g/dL (12.0-15.5); LYMPHOCYTES % (AUTO) 22.6 % (13-45); MEAN CORPUSCULAR HEMOGLOBIN 32.6 pg (27.0-33.4); MEAN CORPUSCULAR HGB CONC 34.8 g/dL (32.0-36.0); MEAN CORPUSCULAR VOLUME 94 fl (80-97); MONOCYTES % (AUTO) 5.7 % (3-13); PLATELET COUNT 247 10^3/uL (150-450); RED BLOOD COUNT 4.83 10^6/uL (3.72-5.28); RED CELL DISTRIBUTION WIDTH 12.6 % (11.5-14.0); SEGMENTED NEUTROPHILS % (AUTO) 70.2 % (42-78); TOTAL CELLS COUNTED % (AUTO) 100 %; WHITE BLOOD COUNT 9.7 10^3/uL (4.0-10.5)
--- NOTE | 2019-03-10 10:31 | EKG REPORT ---
SEVERITY:- BORDERLINE ECG - SINUS RHYTHM PROBABLE LEFT ATRIAL ABNORMALITY BORDERLINE INFERIOR Q WAVES INCOMPLETE RBBB : Confirmed by: Adrian Diaz MD 10-Mar-2019 10:29:23
[2019-03-10 10:43] LABS: APPEARANCE,URINE CLEAR; BILIRUBIN,URINE NEGATIVE (NEGATIVE); COLOR,URINE STRAW; GLUCOSE, URINE NEGATIVE (NEGATIVE); KETONES,URINE NEGATIVE (NEGATIVE); LEUKOCYTE ESTERASE,URINE NEGATIVE (NEGATIVE); NITRITE,URINE NEGATIVE (NEGATIVE); PROTEIN,URINE NEGATIVE (NEGATIVE); URINE SPECIFIC GRAVITY 1.002; UROBILINOGEN,URINE NEGATIVE mg/dL (<2.0)
[2019-03-10 10:58] LABS: ALBUMIN 4.4 g/dL (3.5-5.0); ALKALINE PHOSPHATASE 58 U/L (38-126); ANION GAP 5 (5-19); ASPARTATE AMINO TRANSFERASE 20 U/L (14-36); BILIRUBIN,DIRECT 0.2 mg/dL (0.0-0.4); BILIRUBIN,TOTAL 0.5 mg/dL (0.2-1.3); BLOOD UREA NITROGEN 7 mg/dL (7-20); CALCIUM 9.5 mg/dL (8.4-10.2); CARBON DIOXIDE 30 mmol/L (22-30); CHLORIDE 105 mmol/L (98-107); GLUCOSE 85 mg/dL (75-110); POTASSIUM 5.1 mmol/L (3.6-5.0); TOTAL PROTEIN 7.2 g/dL (6.3-8.2)
[2019-03-10 11:02] LABS: ACETAMINOPHEN < 10 ug/mL (10-30); ALCOHOL < 10 mg/dL (NONE DETECTED); SALICYLATE < 1.0 mg/dL (2.0-20.0); URINE AMPHETAMINES SCREEN NEGATIVE; URINE BARBITURATES SCREEN NEGATIVE; URINE BENZODIAZEPINES SCREEN NEGATIVE; URINE COCAINE SCREEN NEGATIVE; URINE MARIJUANA (THC) SCREEN NEGATIVE; URINE METHADONE SCREEN NEGATIVE; URINE PHENCYCLIDINE SCREEN NEGATIVE
--- NOTE | 2019-03-10 11:15 | PSYCHOLOGICAL NOTE ---
Psych Note - Psych Note Date seen by psych provider: 03/10/19 Time seen by psych provider: 10:35 Psych Note: Reason for consult: Suicidal Gesture Patient is a 43 year old female who presents to ED via POV after suicidal gesture. Patient reports yesterday she consumed 8 Ambien, alcohol, and 1 Xanax. Patient was last seen by behavioral health for similar presentation on 09/06/18. Patient was referred to [facility] for medication management and mental health services. Medication recommendations at that time were Zyprexa and Buspar. Patient sates she went to [facility] and was placed on Lexapro and the Zyprexa and Buspar were discontinued. Patient was only on Lexapro "a little while" Patient states states her thoughts "are not very normal." Patient is guarded with disclosures, however speaks of paranoia thoughts (dislike of technology because people can intercept). Patient states her primary concern is the tumor in her brain. Patient is asking for CT scans to determine if the tumor has grown and is contributing to her current thought processes. Patient declines medications and outpatient therapy. Patient states most "western medicine is not for me." Patient has some insight regarding thoughts "not being normal." Per nurse report, patient is requesting overnight stay without IVC. Patient decided to leave AMA. Clinician encouraged patient to stay. Patient is alert and oriented to person, place, time and circumstance. Mood is normal (tearful at times) with congruent affect. Patient engaged in suicidal gesture. Patient denied current suicidal ideation. Patient denies homicidal ideation. Patient speaks of paranoid beliefs. There is no observed behavior that suggests patient is responding to internal stimuli. Patient denies current auditory and visual hallucinations. Eye contact is appropriate. Conversational speech is within normal rate, tone, and prosody. Intellectual ability appears to be within average range. Attention and concentration are good. Insight, judgment and impulse control are currently poor. Medication recommendations per [facility] contracted psychiatrist Dr. Silverio EDDY is as follows: Pending Impression/Plan: Patient left AMA. Patient's urine drug screen is negative for ETOH, barbiturates, and benzos. Patient denied current suicidal ideation. Dr. Atkins was consulted on the care and management of this patient; attending physician is in agreement with recommendations and disposition.
[2019-03-10 12:41] VITALS: BP 114/69
--- NOTE | 2019-03-10 12:41 | ER Document Report ---
ED General - General Chief Complaint: Suicidal Ideation Stated Complaint: PYSCH PROBLEM Time Seen by Provider: 03/10/19 09:34 Mode of Arrival: Ambulatory Information source: Patient Notes: 43-year-old female patient presents early this morning around 9:00 with a history that she had suicidal thoughts the night before and had drank some alcohol took some Xanax and Ambien. Patient states she is no longer suicidal and prefers to go home. She states that she was depressed and that she knows that she has a brain tumor that she was hoping that we could do a scan on to find out if it is getting larger which would be causing her to have her issue with depression at this time. Patient lives with her ex- as they own a residence together and until they sell the house they both live in the household together with other members. 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 Patient denies any other medical problems. Denies any fever chills headache nausea vomiting chest pain GI symptoms. Patient states she has no thoughts at this time of harming herself or anyone else. TRAVEL OUTSIDE OF THE [place] IN LAST 30 DAYS: No - Related Data Allergies/Adverse Reactions: metronidazole [From Flagyl] Allergy (Severe, Verified 03/10/19 09:31) Anaphylaxis Metronidazole HCl [From Flagyl] Allergy (Severe, Verified 03/10/19 09:31) Anaphylaxis trazodone [Trazodone] Allergy (Severe, Verified 03/10/19 09:31) ITCHING/HIVES Past Medical History - Social History Smoking Status: Current Every Day Smoker Chew tobacco use (# tins/day): No Frequency of alcohol use: Social Drug Abuse: Marijuana Lives with: Family Family History: Reviewed & Not Pertinent, Other Patient has suicidal ideation: Yes Patient has homicidal ideation: No - Past Medical History Cardiac Medical History: Reports: Hx Coronary Artery Disease - high cholesterol, Hx Hypercholesterolemia Denies: Hx Hypertension Pulmonary Medical History: Reports: Hx COPD - abcess in lung, Hx Pneumonia Denies: Hx Asthma, Hx Bronchitis Neurological Medical History: Reports: Hx Seizures - LAST ON ABOUT 4 MONTHS AGO. Denies: Hx Cerebrovascular Accident Renal/ Medical History: Denies: Hx Peritoneal Dialysis Musculoskeletal Medical History: Denies Hx Arthritis Psychiatric Medical History: Reports: Hx Bipolar Disorder, Hx Depression Past Surgical History: Reports: Hx Hysterectomy - Immunizations Immunizations up to date: Yes Hx Diphtheria, Pertussis, Tetanus Vaccination: Yes Hx Pneumococcal Vaccination: 12/06/08 Review of Systems - Review of Systems Neurological/Psychological: Depression Physical Exam - Vital signs Vitals: Temp Pulse Resp BP Pulse Ox 97.7 F 73 18 123/78 100 03/10/19 09:20 03/10/19 09:20 03/10/19 09:20 03/10/19 09:20 03/10/19 09:20 Interpretation: Normal - General General appearance: Appears well, Alert - HEENT Head: Normocephalic, Atraumatic Eyes: Normal Pupils: PERRL - Respiratory Respiratory status: No respiratory distress Chest status: Nontender Breath sounds: Normal Chest palpation: Normal - Cardiovascular Rhythm: Regular Heart sounds: Normal auscultation Murmur: No - Abdominal Inspection: Normal Distension: No distension Bowel sounds: Normal Tenderness: Nontender Organomegaly: No organomegaly - Back Back: Normal, Nontender - Extremities General upper extremity: Normal inspection, Nontender, Normal color, Normal ROM, Normal temperature General lower extremity: Normal inspection, Nontender, Normal color, Normal ROM, Normal temperature, Normal weight bearing. No: Rich's sign - Neurological Neuro grossly intact: Yes Cognition: Normal Orientation: AAOx4 Blayne Coma Scale Eye Opening: Spontaneous [place] Coma Scale Verbal: Oriented Blayne Coma Scale Motor: Obeys Commands Blayne Coma Scale Total: 15 Speech: Normal Motor strength normal: LUE, RUE, LLE, RLE Sensory: Normal - Psychological Associated symptoms: Normal affect, Normal mood - Skin Skin Temperature: Warm Skin Moisture: Dry Skin Color: Normal Course - Re-evaluation Re-evalutation: 03/10/19 12:43 Discussed at length with the patient who reports that she has a brain tumor that is been present for years. And she wonders if this brain tumor has anything to do with her depression at this time. Offered to order a CT scan of her brain and patient says it is not an emergency and therefore she did not want to stay in the emergency department any longer. - Vital Signs Vital signs: Temp Pulse Resp BP Pulse Ox 97.9 F 80 20 114/69 100 03/10/19 12:30 03/10/19 12:30 03/10/19 12:30 03/10/19 12:30 03/10/19 12:30 - Laboratory Result Diagrams: 03/10/19 10:00 03/10/19 10:00 Laboratory results interpreted by me: 03/10/19 03/10/19 10:00 10:00 Hgb 15.8 H Potassium 5.1 H Salicylates < 1.0 L Acetaminophen < 10 L 03/10/19 12:40 Patient's urine drug screen does not show any evidence of taking any illicit or medications. No benzodiazepines were found in her urine and alcohol level was 0. Patient is medically cleared and is is not meeting criteria for inpatient mental health care at this time. Discharge - Discharge Clinical Impression: Depression Qualifiers: Depression Type: reactive depression Qualified Code(s): F32.9 - Major depressive disorder, single episode, unspecified Condition: Stable Disposition: HOME, SELF-CARE Additional Instructions: Depression Your evaluation reveals that you have mental depression. While symptoms may be vague, they often include disturbance of sleep, fatigue, loss of appetite, and general loss of interest in life. While depression may be a side effect of drugs, or a reaction to a major change in your life, many cases have no known cause. If depression is acute, and related to a major loss in your life, you can expect it to clear completely with time. If you have been depressed a long time, are prone to repeated bouts of depression or low mood, or have been thinking of suicide, get help. Depression can be treated with anti-depressant medication and counselling. Long-term depression will often take a few weeks to clear, even with appropriate medication. Follow-up care is important. Contact your physician, the hospital emergency center, crisis line, or your counsellor if you are losing control or having self-destructive thoughts. Patient is encouraged to return to the emergency department if she has any thoughts of hurting herself or others. Patient is encouraged to follow-up with mental health to determine if she is in need of medications to help her with her circumstantial depression at this time.
== END 2019-03-10 12:50 | disposition home or self-care (01) ==
LOC: ER 09:05
DX: F32.9 Major depressive disorder, single episode, unspecified (principal); F10.10 Alcohol abuse, uncomplicated; Z79.899 Other long term (current) drug therapy; F17.200 Nicotine dependence, unspecified, uncomplicated; I25.10 Atherosclerotic heart disease of native coronary artery without angina pectoris; J44.9 Chronic obstructive pulmonary disease, unspecified
CPT/HCPCS: 36415; 80053; 80307; 81001; 84703; 85025; 93005; 93010; 99285

== ENCOUNTER 2019-05-01 13:49 | Emergency (ER) | payer OTHER ==
--- NOTE | 2019-05-01 14:49 | ER Document Report ---
ED Medical Screen (RME) - General Chief Complaint: Urinary Problem Stated Complaint: URINARY ISSUE Time Seen by Provider: 05/01/19 14:42 Mode of Arrival: Ambulatory Information source: Patient Notes: 43-year-old female presented to ED for complaint of abdominal distention, pain and blurring of blood with urination, drainage with urine, with intermittent nausea and vomiting. She states she gets frequent tract infections. She states she is not really having any abdominal pain just bloating with her urinary symptoms. She is alert oriented respirations regular nonlabored speaking in full sentences. She states she has had a hysterectomy. TRAVEL OUTSIDE OF THE [place] IN LAST 30 DAYS: No - Related Data Smoking: Cigarettes - Pack a day Frequency of alcohol use: Social Drug Abuse: None Allergies/Adverse Reactions: metronidazole [From Flagyl] Allergy (Severe, Verified 03/10/19 09:31) Anaphylaxis Metronidazole HCl [From Flagyl] Allergy (Severe, Verified 03/10/19 09:31) Anaphylaxis trazodone [Trazodone] Allergy (Severe, Verified 03/10/19 09:31) ITCHING/HIVES Past Medical History - General Information source: Patient - Social History Cigarette use (# per day): Yes Frequency of alcohol use: Social Drug Abuse: None Lives with: Friend Family history: Reviewed & Not Pertinent - Past Medical History Cardiac Medical History: Reports: Hx Hypercholesterolemia Pulmonary Medical History: Reports: Hx Pneumonia, Other - Abscess in the lungs EENT Medical History: Reports: None Neurological Medical History: Reports: Hx Seizures - Last 1 about 2016 Endocrine Medical History: Reports: None Renal/ Medical History: Reports: None Malignancy Medical History: Reports: None GI Medical History: Reports: None Musculoskeltal Medical History: Reports None Psychiatric Medical History: Reports: Hx Bipolar Disorder, Hx Depression Traumatic Medical History: Reports: None Infectious Medical History: Reports: None Past Surgical History: Reports: Hx Hysterectomy, Hx Tubal Ligation, Other - Biopsies of the lungs and lymph nodes - Immunizations Immunizations up to date: Yes Hx Diphtheria, Pertussis, Tetanus Vaccination: Yes Course - Laboratory Result Diagrams: 05/01/19 14:55 05/01/19 14:55
[2019-05-01 15:09] LABS: ABSOLUTE BASOPHILS # (AUTO) 0.1 10^3/uL (0.0-0.2); ABSOLUTE EOSINOPHILS # (AUTO) 0.1 10^3/uL (0.0-0.6); ABSOLUTE MONOCYTES (AUTO) 0.6 10^3/uL (0.1-1.4); ABSOLUTE NEUT (AUTO) 6.1 10^3/uL (1.7-8.2); BASOPHILS % (AUTO) 0.6 % (0-2); EOSINOPHILS % (AUTO) 1.4 % (0-6); HEMATOCRIT 37.4 % (36.0-47.0); LYMPHOCYTES % (AUTO) 22.8 % (13-45); MEAN CORPUSCULAR HEMOGLOBIN 32.4 pg (27.0-33.4); MEAN CORPUSCULAR HGB CONC 34.8 g/dL (32.0-36.0); MEAN CORPUSCULAR VOLUME 93 fl (80-97); MONOCYTES % (AUTO) 6.5 % (3-13); PLATELET COUNT 214 10^3/uL (150-450); SEGMENTED NEUTROPHILS % (AUTO) 68.7 % (42-78); TOTAL CELLS COUNTED % (AUTO) 100 %; WHITE BLOOD COUNT 8.8 10^3/uL (4.0-10.5)
[2019-05-01 15:15] LABS: APPEARANCE,URINE CLEAR; BILIRUBIN,URINE NEGATIVE (NEGATIVE); COLOR,URINE YELLOW; GLUCOSE, URINE NEGATIVE (NEGATIVE); KETONES,URINE NEGATIVE (NEGATIVE); PROTEIN,URINE NEGATIVE (NEGATIVE); URINE SPECIFIC GRAVITY 1.001; UROBILINOGEN,URINE NEGATIVE mg/dL (<2.0)
[2019-05-01 15:36] LABS: ALBUMIN 3.8 g/dL (3.5-5.0); ALKALINE PHOSPHATASE 48 U/L (38-126); ANION GAP 8 (5-19); ASPARTATE AMINO TRANSFERASE 17 U/L (14-36); BILIRUBIN,DIRECT 0.3 mg/dL (0.0-0.4); BILIRUBIN,TOTAL 0.3 mg/dL (0.2-1.3); BLOOD UREA NITROGEN 9 mg/dL (7-20); CALCIUM 9.5 mg/dL (8.4-10.2); CARBON DIOXIDE 28 mmol/L (22-30); CHLORIDE 104 mmol/L (98-107); GLUCOSE 83 mg/dL (75-110); POTASSIUM 4.1 mmol/L (3.6-5.0); TOTAL PROTEIN 6.5 g/dL (6.3-8.2)
--- NOTE | 2019-05-01 17:04 | RADIOLOGY REPORT (SQ) ---
EXAM DESCRIPTION: U/S RETROPERITON (RENAL/AORTA) COMPLETED DATE/TIME: 05/01/2019 4:39 pm REASON FOR STUDY: Urinary symptoms, kidney pain COMPARISON: None. TECHNIQUE: Dynamic and static grayscale images acquired of the kidneys and bladder and recorded on P ACS. Additional selected color Doppler and spectral images recorded. LIMITATIONS: None. FINDINGS: RIGHT KIDNEY: The right kidney measures 11.2 cm in length. The corticomedullary different iation is preserved. There is no hydronephrosis, calcification or mass. LEFT KIDNEY: The left kidney measures 11.3 cm in length. The corticomedullary differentiation is pr eserved. There is no hydronephrosis, calcification or mass. BLADDER: No masses. OTHER FINDINGS: No other finding. IMPRESSION: No abnormality of the kidneys or urinary bladder. TECHNICAL DOCUMENTATION: JOB ID: [id number] [employer]- All Rights Reserved Reading location - IP/workstation name: [email or web address]
--- NOTE | 2019-05-01 17:21 | ER Document Report ---
ED GI/ - General Chief Complaint: Urinary Problem Stated Complaint: URINARY ISSUE Time Seen by Provider: 05/01/19 14:42 Mode of Arrival: Ambulatory Information source: Patient Notes: 43-year-old female presented to ED for complaint of abdominal distention abdominal pain burning and blood with urination and some drainage with her urination. She states she had had intermittent nausea and vomiting a couple days ago but it is no longer having nausea and vomiting. She states she gets very frequent UTIs but now she is having some pain in her flank as well as in her urinary tract. She is alert oriented respirations regular nonlabored speaking in full sentences walks with even steady gait. States she has been taking Azo but it is not helping anymore TRAVEL OUTSIDE OF THE [place] IN LAST 30 DAYS: No - HPI Patient complains to provider of: Abdominal pain, Other - Urinary frequency urgency and burning Onset: Other - Several days Timing/Duration: Gradual Quality of pain: Achy, Burning, Pressure Severity at maximum: Moderate Severity in ED: Moderate Pain Level: 3 Location: Left flank, Right flank, Other - Burning with urination LMP: Hysterectomy Associated symptoms: Urinary frequency, Urinary urgency Exacerbated by: Other - Urination Relieved by: Denies Similar symptoms previously: Yes Recently seen / treated by doctor: No - Related Data Allergies/Adverse Reactions: metronidazole [From Flagyl] Allergy (Severe, Verified 03/10/19 09:31) Anaphylaxis Metronidazole HCl [From Flagyl] Allergy (Severe, Verified 03/10/19 09:31) Anaphylaxis trazodone [Trazodone] Allergy (Severe, Verified 03/10/19 09:31) ITCHING/HIVES Past Medical History - General Information source: Patient - Social History Smoking Status: Current Every Day Smoker Cigarette use (# per day): Yes - 1/2 pack/day Frequency of alcohol use: Social Drug Abuse: None Lives with: Friend Family History: Reviewed & Not Pertinent, Other - Past Medical History Cardiac Medical History: Reports: Hx Hypercholesterolemia Pulmonary Medical History: Reports: Hx Pneumonia, Other - Abscess in the lungs EENT Medical History: Reports: None Neurological Medical History: Reports: Hx Seizures - Last 1 about 2015 Endocrine Medical History: Reports: None Renal/ Medical History: Reports: None Malignancy Medical History: Reports: None GI Medical History: Reports: None Musculoskeletal Medical History: Reports None Skin Medical History: Reports None Psychiatric Medical History: Reports: Hx Bipolar Disorder, Hx Depression Traumatic Medical History: Reports: None Infectious Medical History: Reports: None Past Surgical History: Reports: Hx Hysterectomy, Hx Tubal Ligation, Other - Biopsies of the lungs and lymph nodes - Immunizations Immunizations up to date: Yes Hx Diphtheria, Pertussis, Tetanus Vaccination: Yes Hx Pneumococcal Vaccination: 12/06/08 Review of Systems - Review of Systems Constitutional: No symptoms reported EENT: No symptoms reported Cardiovascular: No symptoms reported Respiratory: No symptoms reported Gastrointestinal: No symptoms reported Genitourinary: No symptoms reported, Burning, Flank pain, Hematuria, Pain, Urgency Female Genitourinary: No symptoms reported Musculoskeletal: Muscle pain - Body aches Skin: No symptoms reported Hematologic/Lymphatic: No symptoms reported Neurological/Psychological: No symptoms reported Physical Exam - Vital signs Vitals: Temp Pulse Resp BP Pulse Ox 98 F 77 18 117/66 100 05/01/19 17:30 05/01/19 17:30 05/01/19 17:30 05/01/19 17:30 05/01/19 17:30 Interpretation: Normal - General General appearance: Appears well, Alert - HEENT Head: Normocephalic, Atraumatic Eyes: Normal Pupils: PERRL - Respiratory Respiratory status: No respiratory distress Chest status: Nontender Breath sounds: Normal Chest palpation: Normal - Cardiovascular Rhythm: Regular Heart sounds: Normal auscultation Murmur: No - Abdominal Inspection: Normal Distension: Distended - Mild bloating Bowel sounds: Normal Tenderness: Tender - Suprapubic Organomegaly: No organomegaly - Back Back: Normal, Nontender - Extremities General upper extremity: Normal inspection, Nontender, Normal color, Normal ROM, Normal temperature General lower extremity: Normal inspection, Nontender, Normal color, Normal ROM, Normal temperature, Normal weight bearing. No: Rich's sign - Neurological Neuro grossly intact: Yes Cognition: Normal Orientation: AAOx4 Redfox Coma Scale Eye Opening: Spontaneous Redfox Coma Scale Verbal: Oriented Blayne Coma Scale Motor: Obeys Commands Blayne Coma Scale Total: 15 Speech: Normal Motor strength normal: LUE, RUE, LLE, RLE Sensory: Normal - Psychological Associated symptoms: Normal affect, Normal mood - Skin Skin Temperature: Warm Skin Moisture: Dry Skin Color: Normal Course - Vital Signs Vital signs: Temp Pulse Resp BP Pulse Ox 98 F 77 18 117/66 100 05/01/19 17:30 05/01/19 17:30 05/01/19 17:30 05/01/19 17:30 05/01/19 17:30 - Laboratory Result Diagrams: 05/01/19 14:55 05/01/19 14:55 Laboratory results interpreted by me: 05/01/19 14:55 Urine Blood SMALL H Leukocyte Esterase Rfl LARGE H Discharge - Discharge Clinical Impression: UTI (urinary tract infection) Qualifiers: Urinary tract infection type: acute cystitis Hematuria presence: with hematuria Qualified Code(s): N30.01 - Acute cystitis with hematuria Condition: Stable Disposition: HOME, SELF-CARE Additional Instructions: URINARY TRACT INFECTION: Your evaluation indicates that you have a urinary tract infection. This is due to germs growing in the bladder. This is a common problem. This infection usually responds quickly to antibiotics. Your antibiotic should be taken exactly as prescribed. Drink plenty of fluids -- three to four quarts a day. Occasionally, a bladder anesthetic will be prescribed to help stop the feeling of urgency until the antibiotic has a chance to clear the infection. This may cause your urine to be dark orange. Certain urine infections require a culture. If the doctor obtained a culture, the results will be back in two days. You should call to see if a change in treatment is needed. A repeat urinalysis after you finish treatment is often recommended. The physician will let you know if further testing is required. Call the doctor if you develop fever, chills, flank pain, inability to urinate, or blood in the urine. NITROFURANTOIN (MACRODANTIN, MACROBID): You have received a prescription for nitrofurantoin (Macrodantin). This antibiotic is used for urinary tract infections. Women who are or nursing should notify the physician before taking this medicine. If you have ever had a problem caused by this medication in the past, be sure the physician is aware of it. Common side effects of this medicine include nausea, vomiting, or decreased appetite. Notify your physician if these side effects become severe. Immediately stop this medicine and call the physician if you develop cough, shortness of breath, chest pain, weakness, jaundice (yellow color of the skin and whites of the eyes), or a skin rash. URINARY ANESTHETIC AGENT: You have been given a medication (Pyridium) for urinary tract discomfort. This medicine numbs the lining of the bladder and urethra, resulting in less pain, burning, and urgency. You may take it as needed, according to instructions. When the symptoms resolve, you can stop this medication (be sure to continue any other medications the doctor has given you). This medicine turns the urine a dark orange. It may stain underwear. Occ asionally, it can cause nausea. Return for evaluation if there are any unexpected effects, such as itching, hives, or shortness of breath. FOLLOW-UP CARE: If you have been referred to a physician for follow-up care, call the physicians office for an appointment as you were instructed or within the next two days. If you experience worsening or a significant change in your symptoms, notify the physician immediately or return to the Emergency Department at any time for re-evaluation. Prescriptions: Nitrofurantoin Monohyd/M-Cryst [Macrobid 100 mg Capsule] 100 mg PO BID #14 cap Phenazopyridine HCl [Pyridium 100 Mg Tablet] 100 mg PO TIDP PRN #14 tablet PRN Reason:
[2019-05-01] MEDS ORDERED: NITROFURANTOIN MONOHYD/M-CRYST 100 MG CAPSULE PO ONE (17:22)
[2019-05-01] MEDS ORDERED: PHENAZOPYRIDINE HCL 100 MG TABLET PO ONE (17:22)
[2019-05-01 17:32] VITALS: BP 117/66
== END 2019-05-01 18:14 | disposition home or self-care (01) ==
LOC: ER 13:49
DX: N30.01 Acute cystitis with hematuria (principal); R30.0 Dysuria; R14.0 Abdominal distension (gaseous); F17.210 Nicotine dependence, cigarettes, uncomplicated; Z98.51 Tubal ligation status; Z90.710 Acquired absence of both cervix and uterus; Z87.440 Personal history of urinary (tract) infections
CPT/HCPCS: 99284; 36415; 87086; 85025; 87088; 80053; 81001; 76770; J3490; J8499; 87186

== ENCOUNTER 2019-05-10 14:10 | Emergency (ER) | payer OTHER ==
--- NOTE | 2019-05-10 15:39 | ER Document Report ---
ED Medical Screen (RME) - General Chief Complaint: Flank Pain Stated Complaint: FLANK PAIN Time Seen by Provider: 05/10/19 15:33 Mode of Arrival: Ambulatory Information source: Patient Notes: 43-year-old female presented to ED for complaint of bilateral flank pain oscillating [id number]. She states when she just voided well in the emergency room it did not hurt to urinate but it has been before that. She was seen here recently diagnosed with a UTI and started on Macrobid I did review the cultures that is said that the Macrobid should have taken care of the infection. She did have E. coli in her urine. It was resistant to most of the other oral antibiotics. I will get repeat blood and urine and have her re-seen by another provider in case there is something else going on. I have greeted and performed a rapid initial assessment of this patient. A comprehensive ED assessment and evaluation of the patient, analysis of test results and completion of medical decision making process will be conducted by an additional ED providers. TRAVEL OUTSIDE OF THE [place] IN LAST 30 DAYS: No - Related Data Allergies/Adverse Reactions: metronidazole [From Flagyl] Allergy (Severe, Verified 05/10/19 15:33) Anaphylaxis Metronidazole HCl [From Flagyl] Allergy (Severe, Verified 05/10/19 15:33) Anaphylaxis trazodone [Trazodone] Allergy (Severe, Verified 05/10/19 15:33) ITCHING/HIVES Past Medical History - Social History Family history: Reviewed & Not Pertinent - Past Medical History Cardiac Medical History: Reports: Hx Hypercholesterolemia Pulmonary Medical History: Reports: Hx Pneumonia Neurological Medical History: Reports: Hx Seizures - Last 1 about 2015 Psychiatric Medical History: Reports: Hx Bipolar Disorder, Hx Depression Past Surgical History: Reports: Hx Hysterectomy, Hx Tubal Ligation, Other - Biopsies of the lungs and lymph nodes - Immunizations Immunizations up to date: Yes Hx Diphtheria, Pertussis, Tetanus Vaccination: Yes
[2019-05-10 16:03] LABS: APPEARANCE,URINE CLEAR; BILIRUBIN,URINE NEGATIVE (NEGATIVE); COLOR,URINE YELLOW; GLUCOSE, URINE NEGATIVE (NEGATIVE); KETONES,URINE NEGATIVE (NEGATIVE); PROTEIN,URINE NEGATIVE (NEGATIVE); URINE SPECIFIC GRAVITY 1.003; UROBILINOGEN,URINE NEGATIVE mg/dL (<2.0)
[2019-05-10 16:30] LABS: ABSOLUTE BASOPHILS # (AUTO) 0.1 10^3/uL (0.0-0.2); ABSOLUTE EOSINOPHILS # (AUTO) 0.1 10^3/uL (0.0-0.6); ABSOLUTE LYMPHOCYTES (AUTO) 2.5 10^3/uL (0.5-4.7); ABSOLUTE MONOCYTES (AUTO) 0.6 10^3/uL (0.1-1.4); ABSOLUTE NEUT (AUTO) 9.1 10^3/uL (1.7-8.2); BASOPHILS % (AUTO) 0.5 % (0-2); EOSINOPHILS % (AUTO) 0.8 % (0-6); HEMATOCRIT 41.1 % (36.0-47.0); HEMOGLOBIN 14.4 g/dL (12.0-15.5); LYMPHOCYTES % (AUTO) 20.2 % (13-45); MEAN CORPUSCULAR HEMOGLOBIN 32.7 pg (27.0-33.4); MEAN CORPUSCULAR VOLUME 94 fl (80-97); MONOCYTES % (AUTO) 5.2 % (3-13); PLATELET COUNT 298 10^3/uL (150-450); RED BLOOD COUNT 4.39 10^6/uL (3.72-5.28); RED CELL DISTRIBUTION WIDTH 13.3 % (11.5-14.0); SEGMENTED NEUTROPHILS % (AUTO) 73.3 % (42-78); TOTAL CELLS COUNTED % (AUTO) 100 %; WHITE BLOOD COUNT 12.4 10^3/uL (4.0-10.5)
[2019-05-10 16:49] LABS: ALBUMIN 4.6 g/dL (3.5-5.0); ALKALINE PHOSPHATASE 53 U/L (38-126); ANION GAP 11 (5-19); ASPARTATE AMINO TRANSFERASE 19 U/L (14-36); BILIRUBIN,DIRECT 0.3 mg/dL (0.0-0.4); BILIRUBIN,TOTAL 0.4 mg/dL (0.2-1.3); BLOOD UREA NITROGEN 10 mg/dL (7-20); CALCIUM 9.7 mg/dL (8.4-10.2); CARBON DIOXIDE 26 mmol/L (22-30); CHLORIDE 102 mmol/L (98-107); GLUCOSE 73 mg/dL (75-110); POTASSIUM 4.3 mmol/L (3.6-5.0); TOTAL PROTEIN 7.7 g/dL (6.3-8.2)
[2019-05-10] MEDS ORDERED: NITROFURANTOIN MONOHYD/M-CRYST 100 MG CAPSULE PO ONE (17:00)
--- NOTE | 2019-05-10 17:15 | ER Document Report ---
Entered by NEYMAR BALDERRAMA SCRIBE 05/10/19 [id number] Acting as scribe for:VANE SABILLON MD ED General - General Chief Complaint: Pain With Urination Stated Complaint: FLANK PAIN Time Seen by Provider: 05/10/19 15:33 Mode of Arrival: Ambulatory Information source: Patient Notes: 43-year-old female presents to the emergency department with burning with urination every once in a while. Patient states that she was diagnosed with a UTI last week and her symptoms are not going away. Patient reports a fever four days ago. Patient is not up to date on the seasonal influenza vaccine. Patient has a history of frequent hospitalizations when she was younger due to urinary/bladder infections with the last hospitalization being 10 years ago. She also gives a history of being worked up at [facility] for immune deficiency disorder, but it was not completed due to losing her insurance. In addition to the frequent urinary tract infections requiring hospitalization in the past, she had 2 lung abscesses drained by bronchoscopy. She was diagnosed with urinary tract infection on 05/01/2019, and put on a 7-day course of nitrofurantoin. At that time her urine showed large leukocyte esterase with 18 WBCs, and cultured ESBL E. coli, the only oral medication that was sensitive to was the nitrofurantoin. She continues to have off and on occasional UTI type symptoms when she urinates, but it is not consistent. TRAVEL OUTSIDE OF THE [place] 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 Family History: Reviewed & Not Pertinent Patient has suicidal ideation: No Patient has homicidal ideation: No - Past Medical History Cardiac Medical History: Reports: Hx Hypercholesterolemia Pulmonary Medical History: Reports: Hx Pneumonia Neurological Medical History: Reports: Hx Seizures - Last 1 about 2015 Psychiatric Medical History: Reports: Hx Bipolar Disorder, Hx Depression Past Surgical History: Reports: Hx Hysterectomy, Hx Tubal Ligation, Other - Biopsies of the lungs and lymph nodes - Immunizations Immunizations up to date: Yes Hx Diphtheria, Pertussis, Tetanus Vaccination: Yes Hx Pneumococcal Vaccination: 12/06/08 Review of Systems - Review of Systems Constitutional: See HPI, Fever EENT: No symptoms reported Cardiovascular: No symptoms reported Respiratory: No symptoms reported Gastrointestinal: No symptoms reported Genitourinary: See HPI, Burning Female Genitourinary: No symptoms reported Musculoskeletal: No symptoms reported Skin: No symptoms reported Hematologic/Lymphatic: No symptoms reported Neurological/Psychological: No symptoms reported -: Yes All other systems reviewed and negative Physical Exam - Notes Notes: Physical Exam: General: Alert, appears well. HEENT: Normocephalic. Atraumatic. PERRL. Extraocular movements intact. Oropharynx clear. Neck: Supple. Non-tender. Respiratory: No respiratory distress. Clear and equal breath sounds bilaterally. When asked to cough, Patient had mild rhonchi. Cardiovascular: Regular rate and rhythm. Abdominal: Normal Inspection. Non-tender. No distension. Normal Bowel Sounds. Back: No gross abnormalities. Extremities: Moves all four extremities. Upper extremities: Normal inspection. Normal ROM. Lower extremities: Normal inspection. No edema. Normal ROM. Neurological: Normal cognition. AAOx4. Normal speech. Psychological: Normal affect. Normal Mood. Skin: Warm. Dry. Normal color. Course - Re-evaluation Re-evalutation: 05/10/19 17:16 The patient does report intermittent dysuria but it is much improved from when she came here on 05/01/2019 and was treated with Macrodantin. The culture on that day grew ESBL E. coli and the only oral medication that was sensitive to was the Macrodantin. The urinalysis today shows trace bacteria just as it did 10 days ago, but there are no WBCs today, and no leukocyte esterase today. Given the patient's past history of what sounds like an immunosuppressive disorder, and continuing symptoms, she will be treated with another course of Macrodantin and encouraged to continue to drink plenty of fluids and empty her bladder more frequently. - Laboratory Result Diagrams: 05/10/19 16:05 05/10/19 16:05 Laboratory results interpreted by me: 05/10/19 05/10/19 16:05 16:05 WBC 12.4 H Absolute Neuts (auto) 9.1 H Glucose 73 L Discharge - Discharge Clinical Impression: Symptoms of urinary tract infection, ESBL E. coli carrier Condition: Stable Disposition: HOME, SELF-CARE Additional Instructions: Urinary Tract Infection Your evaluation indicates that you have a urinary tract infection. This is due to germs growing in the bladder. This is a common problem. This infection usually responds quickly to antibiotics. Your antibiotic should be taken exactly as prescribed. Drink plenty of fluids -- three to four quarts a day. Occasionally, a bladder anesthetic will be prescribed to help stop the feeling of urgency until the antibiotic has a chance to clear the infection. This may cause your urine to be dark orange. Certain urine infections require a culture. If the doctor obtained a culture, the results will be back in two days. You should call to see if a change in treatment is needed. A repeat urinalysis after you finish treatment is often recommended. The physician will let you know if further testing is required. Call the doctor if you develop fever, chills, flank pain, inability to urinate, or blood in the urine. Your urine infection from 10 days ago grew extended spectrum beta-lactamase E. coli which was resistant to almost all oral antibiotics. You were treated with nitrofurantoin and the urine seems to have cleared up, however you still have occasional UTI type symptoms. You will be put on another 7-day course of nitrofurantoin and should have the urine rechecked after you finish the antibiotics. Be sure you drink plenty of fluids and empty your bladder frequently. Follow-up with your primary care provider after you finish the next course of antibiotics. RETURN TO THE EMERGENCY ROOM IF ANY NEW OR WORSENING SYMPTOMS. Prescriptions: Nitrofurantoin Macrocrystal [Nitrofurantoin] 100 mg PO Q6 #28 capsule I personally performed the services described in the documentation, reviewed and edited the documentation which was dictated to the scribe in my presence, and it accurately records my words and actions.
[2019-05-10 17:59] VITALS: BP 122/76
== END 2019-05-10 17:59 | disposition home or self-care (01) ==
LOC: ER 14:10
DX: R30.9 Painful micturition, unspecified (principal); R50.9 Fever, unspecified; Z22.39 Carrier of other specified bacterial diseases; Z87.440 Personal history of urinary (tract) infections; F17.210 Nicotine dependence, cigarettes, uncomplicated; Z87.892 Personal history of anaphylaxis; Z88.1 Allergy status to other antibiotic agents; Z88.8 Allergy status to other drugs, medicaments and biological substances
CPT/HCPCS: 99283; 36415; 87086; 84703; 85025; 80053; 81001; J8499

== ENCOUNTER 2019-05-17 14:40 | Emergency (ER) | payer OTHER ==
--- NOTE | 2019-05-17 15:43 | ER Document Report ---
ED Medical Screen (RME) - General Chief Complaint: Abdominal Pain Stated Complaint: ABDOMINAL PAIN,PAINFUL URINATION Time Seen by Provider: 05/17/19 15:38 Mode of Arrival: Ambulatory Information source: Patient Notes: 43-year-old female presents to ED for complaint of right flank and pelvic pain burning with urination for the last week. She states she is on antibiotics for the last urinary tract infection but she is still hurting she is on Macrobid at this time. She has been on it for about 2 weeks now. Patient states she has had a hysterectomy. I have greeted and performed a rapid initial assessment of this patient. A comprehensive ED assessment and evaluation of the patient, analysis of test results and completion of medical decision making process will be conducted by an additional ED providers. TRAVEL OUTSIDE OF THE [place] IN LAST 30 DAYS: No - Related Data Allergies/Adverse Reactions: metronidazole [From Flagyl] Allergy (Severe, Verified 05/10/19 15:33) Anaphylaxis Metronidazole HCl [From Flagyl] Allergy (Severe, Verified 05/10/19 15:33) Anaphylaxis trazodone [Trazodone] Allergy (Severe, Verified 05/10/19 15:33) ITCHING/HIVES Past Medical History - Social History Family history: Reviewed & Not Pertinent - Past Medical History Cardiac Medical History: Reports: Hx Hypercholesterolemia Pulmonary Medical History: Reports: Hx Pneumonia Neurological Medical History: Reports: Hx Seizures - Last 1 about 2015 Psychiatric Medical History: Reports: Hx Bipolar Disorder, Hx Depression Past Surgical History: Reports: Hx Hysterectomy, Hx Tubal Ligation, Other - Biopsies of the lungs and lymph nodes - Immunizations Immunizations up to date: Yes Hx Diphtheria, Pertussis, Tetanus Vaccination: Yes Physical Exam - Vital signs Vitals: Temp Pulse Resp BP Pulse Ox 97.4 F 71 16 128/73 H 100 05/17/19 14:46 05/17/19 14:46 05/17/19 14:46 05/17/19 14:46 05/17/19 14:46 Course - Vital Signs Vital signs: Temp Pulse Resp BP Pulse Ox 97.4 F 71 16 128/73 H 100 05/17/19 14:46 05/17/19 14:46 05/17/19 14:46 05/17/19 14:46 05/17/19 14:46
[2019-05-17 16:10] LABS: ABSOLUTE BASOPHILS # (AUTO) 0.1 10^3/uL (0.0-0.2); ABSOLUTE EOSINOPHILS # (AUTO) 0.1 10^3/uL (0.0-0.6); ABSOLUTE LYMPHOCYTES (AUTO) 2.1 10^3/uL (0.5-4.7); ABSOLUTE MONOCYTES (AUTO) 0.5 10^3/uL (0.1-1.4); ABSOLUTE NEUT (AUTO) 5.2 10^3/uL (1.7-8.2); BASOPHILS % (AUTO) 0.7 % (0-2); EOSINOPHILS % (AUTO) 1.1 % (0-6); HEMATOCRIT 43.1 % (36.0-47.0); HEMOGLOBIN 14.6 g/dL (12.0-15.5); MEAN CORPUSCULAR HEMOGLOBIN 31.8 pg (27.0-33.4); MEAN CORPUSCULAR HGB CONC 33.8 g/dL (32.0-36.0); MEAN CORPUSCULAR VOLUME 94 fl (80-97); MONOCYTES % (AUTO) 6.4 % (3-13); PLATELET COUNT 250 10^3/uL (150-450); RED BLOOD COUNT 4.59 10^6/uL (3.72-5.28); RED CELL DISTRIBUTION WIDTH 13.5 % (11.5-14.0); SEGMENTED NEUTROPHILS % (AUTO) 64.8 % (42-78); TOTAL CELLS COUNTED % (AUTO) 100 %
[2019-05-17 16:11] LABS: APPEARANCE,URINE CLEAR; BILIRUBIN,URINE NEGATIVE (NEGATIVE); COLOR,URINE STRAW; GLUCOSE, URINE NEGATIVE (NEGATIVE); KETONES,URINE NEGATIVE (NEGATIVE); PROTEIN,URINE NEGATIVE (NEGATIVE); URINE SPECIFIC GRAVITY 1.001; UROBILINOGEN,URINE NEGATIVE mg/dL (<2.0)
[2019-05-17 16:37] LABS: ALBUMIN 4.4 g/dL (3.5-5.0); ALKALINE PHOSPHATASE 52 U/L (38-126); ANION GAP 8 (5-19); ASPARTATE AMINO TRANSFERASE 18 U/L (14-36); BILIRUBIN,DIRECT 0.1 mg/dL (0.0-0.4); BILIRUBIN,TOTAL 0.4 mg/dL (0.2-1.3); BLOOD UREA NITROGEN 8 mg/dL (7-20); CALCIUM 9.2 mg/dL (8.4-10.2); CARBON DIOXIDE 27 mmol/L (22-30); CHLORIDE 105 mmol/L (98-107); TOTAL PROTEIN 7.2 g/dL (6.3-8.2)
[2019-05-17 16:46] LABS: GLUCOSE 33 mg/dL (75-110)
[2019-05-17] MEDS ORDERED: DEXTROSE 5%-1/2 NORMAL SALINE 1,000 ML IV ONE (17:16)
--- NOTE | 2019-05-17 20:29 | ER Document Report ---
ED General - General Chief Complaint: Flank Pain Stated Complaint: ABDOMINAL PAIN,PAINFUL URINATION Time Seen by Provider: 05/17/19 15:38 Mode of Arrival: Ambulatory Notes: 43 y/o female presents for right flank pain that radiates to pelvis for 1 week. Pt states it is intermittent and states it lasts a few seconds to minutes, nothing makes it worse, nothing makes it better. Pt has dysuria for 1 month, pt has been on Macrobid for the past 2 weeks, last dose today. Denies nausea/vomiting, constipation, fever, chills, abdominal pain. Pt had hysterectomy. Pt states she had some diarrhea when she first started Macrobid two weeks ago. Pt also states mild hematuria and vaginal discharge the past few days. TRAVEL OUTSIDE OF THE [place] IN LAST 30 DAYS: No - Related Data Allergies/Adverse Reactions: metronidazole [From Flagyl] Allergy (Severe, Verified 05/17/19 15:47) Anaphylaxis Metronidazole HCl [From Flagyl] Allergy (Severe, Verified 05/17/19 15:47) Anaphylaxis trazodone [Trazodone] Allergy (Severe, Verified 05/17/19 15:47) ITCHING/HIVES Home Medications: probiotic, macrobid Past Medical History - General Information source: Patient - Social History Smoking Status: Current Every Day Smoker Chew tobacco use (# tins/day): No Frequency of alcohol use: Social Drug Abuse: None Family History: Reviewed & Not Pertinent Patient has suicidal ideation: No Patient has homicidal ideation: No - Past Medical History Cardiac Medical History: Reports: Hx Hypercholesterolemia Pulmonary Medical History: Reports: Hx Pneumonia Neurological Medical History: Reports: Hx Seizures - Last 1 about 2015 Psychiatric Medical History: Reports: Hx Bipolar Disorder, Hx Depression Past Surgical History: Reports: Hx Breast Surgery - breast aug, Hx Hysterectomy, Hx Tubal Ligation, Other - Biopsies of the lungs and lymph nodes - Immunizations Immunizations up to date: Yes Hx Diphtheria, Pertussis, Tetanus Vaccination: Yes Hx Pneumococcal Vaccination: 12/06/08 Review of Systems - Review of Systems Constitutional: denies: Chills, Fever, Malaise EENT: No symptoms reported Cardiovascular: No symptoms reported Respiratory: No symptoms reported Gastrointestinal: Diarrhea. denies: Abdominal pain, Nausea, Vomiting, Constipation Genitourinary: Dysuria, Discharge, Flank pain, Hematuria Female Genitourinary: Vaginal discharge Musculoskeletal: No symptoms reported Skin: No symptoms reported Hematologic/Lymphatic: No symptoms reported Neurological/Psychological: No symptoms reported Physical Exam - Vital signs Vitals: Temp Pulse Resp BP Pulse Ox 97.4 F 71 16 128/73 H 100 05/17/19 14:46 05/17/19 14:46 05/17/19 14:46 05/17/19 14:46 05/17/19 14:46 - General General appearance: Appears well, Alert In distress: None - HEENT Head: Normocephalic, Atraumatic - Respiratory Respiratory status: No respiratory distress - Abdominal Inspection: Normal Distension: No distension Tenderness: Nontender. No: Tender, Guarding, Rebound Organomegaly: No organomegaly - Genitourinary External exam: Normal Speculum exam: Vaginal discharge - whitish clear discharge, mild, Other - no cervix Bimanuel exam: Normal. No: Cervical motion tender, Adnexal tenderness - Extremities General upper extremity: Normal inspection General lower extremity: Normal inspection - Neurological Neuro grossly intact: Yes Cognition: Normal - Skin Skin Temperature: Warm Skin Moisture: Dry Skin Color: Normal Course - Re-evaluation Re-evalutation: 05/17/19 43 y/o female presents for right flank pain that radiates to pelvis. Nontoxic, well appearing. Initial labwork shows glucose 33, no leukocytosis, otherwise normal. UA negative for UTI. Pelvic shows white discharge but otherwise negative. Abd soft, nontender. PE is otherwise unremarkable. Dextrose was ordered. Repeat accucheck ordered. CT abdomen/pelvis without contrast ordered. 05/17/19 20:36 Pt would like to be treated for gonorrhea/chlamydia - azithromycin 1000 mg and rocephin 250 mg ordered. 05/17/19 21:50 CT shows no renal abnormalities, does show small gallstones and dense liver. CT results printed out and given to pt. Also discussed all results with pt. Pt has an appointment with PCP tomorrow. Encouraged pt to discuss dense liver with PCP for rule out. Discussed all labwork with pt as well. Return precautions given. Pt voices understanding and agrees with plan of care. - Vital Signs Vital signs: Temp Pulse Resp BP Pulse Ox 97.4 F 71 16 128/73 H 100 05/17/19 14:46 05/17/19 14:46 05/17/19 14:46 05/17/19 14:46 05/17/19 14:46 - Laboratory Result Diagrams: 05/17/19 15:50 05/17/19 15:50 Laboratory results interpreted by me: 05/17/19 15:50 Glucose 33 L* Discharge - Discharge Clinical Impression: Right flank pain Condition: Stable Disposition: HOME, SELF-CARE Additional Instructions: Your CT scan showed a dense liver. Please follow up with your primary care doctor tomorrow for this. Please return to ER for any worsening symptoms including increased flank pain, abdominal pain, increased urination, blood in urine, fever, nausea/vomiting, constipation/diarrhea, chest pain, dizziness, shortness of breath, or any other symptoms that are concerning to you.
[2019-05-17] MEDS ORDERED: AZITHROMYCIN 250 MG TABLET PO ONE (20:35)
[2019-05-17] MEDS ORDERED: CEFTRIAXONE INJ 250 MG VIAL IV ONE (20:35)
[2019-05-17 20:36] LABS: T.VAGINALIS (WET MOUNT) NO TRICHOMONAS SEEN; YEAST (WET MOUNT) NO YEAST SEEN
[2019-05-17 20:37] LABS: BACTERIA (WET MOUNT) 4+ BACTERIA SEEN; EPITHELIALS (WET MOUNT) 3+ EPITHELIALS SEEN; RBCS (WET MOUNT) RARE RBCS SEEN; WBCS (WET MOUNT) 3+ WBCS SEEN
--- NOTE | 2019-05-17 21:02 | RADIOLOGY REPORT (SQ) ---
EXAM DESCRIPTION: CT abdomen pelvis without contrast. CLINICAL HISTORY: 43 years Female right flank pain COMPARISON: CT from 04/08/2012. TECHNIQUE: Axial images without IV contrast. Sagittal coronal reconstruction. This exam was performed according to our departmental dose-optimization program, which includes automated exposure control, adjustment of the mA and/or kV according to patient size and/or use of iterative reconstruction technique.. FINDINGS: Lung bases are unremarkable. Dense liver, 78 Hounsfield units. No suspicious focal lesions. Mild splenomegaly unchanged since 2013. Dilated IVC and hepatic veins. Pancreas appears mildly thick without obvious acute abnormalities.. Adrenal glands, aorta and para-aortic regions are unremarkable. No suspicious renal abnormality. Nonspecific bowel pattern with mild increase fluid in dilatation of small bowel loops and mild increased colonic stool. Suspected small gallstones. Disc space narrowing at L5-S1. CT of the pelvis demonstrates mildly dilated small bowel loops. Uterus not clearly seen and possibly removed. Uterus was present in 2013. No suspicious distal colonic abnormalities. No free fluid or adenopathy. IMPRESSION: 1. Limited evaluation of the bowel loops because of lack of fat planes. Patient appears to have lost weight since 04/08/2012. Nonspecific bowel pattern with mild dilatation of the majority of the small bowel. Mildly increased colonic stool. 2. Small gallstones. No obvious acute biliary abnormality. 3. Pancreas appears mildly thickened. This can be normal for age. May be better evaluated with ultrasound. 4. Dense liver. Rule out hemochromatosis. 5. No suspicious renal abnormalities.
[2019-05-17] MEDS ORDERED: LIDOCAINE 1% INJ-PF (10 MG/ML) 30 ML SDV NEB ONE (21:29)
[2019-05-17] MEDS ORDERED: CEFTRIAXONE INJ 250 MG VIAL IM ONE (21:29)
[2019-05-17 22:00] LABS: CHLAM PCR NOT DETECTED (NOT DETECT)
[2019-05-17 22:12] VITALS: BP 104/62
== END 2019-05-17 22:13 | disposition home or self-care (01) ==
LOC: ER 14:40
DX: R10.9 Unspecified abdominal pain (principal); R30.0 Dysuria; F17.200 Nicotine dependence, unspecified, uncomplicated; E78.00 Pure hypercholesterolemia, unspecified; Z90.710 Acquired absence of both cervix and uterus
CPT/HCPCS: 99284; 96372; 96360; 96361; 36415; 87210; 82962; 85025; 80053; 81001; 87491; 87591; 74176; J3490; J0696

== ENCOUNTER 2019-05-22 08:18 | Emergency (ER) | payer OTHER ==
--- NOTE | 2019-05-22 09:11 | ER Document Report ---
HPI - HPI Time Seen by Provider: 05/22/19 09:10 Pain Level: 3 Context: Patient is a 43-year-old female who presents to the emergency department with a chief complaint of a cough, sore throat, and fever. Her symptoms started 4 days ago. Her fever got up to 102. She called [facility] and they recommended that she stay home. Patient states that she works at the [employer]. - ROS Systems Reviewed and Negative: Yes All other systems reviewed and negative - CONSTITUTIONAL Constitutional: REPORTS: Fever. DENIES: Chills - EENT EENT: REPORTS: Sore Throat - RESPIRATORY Respiratory: REPORTS: Coughing - REPRODUCTIVE Reproductive: DENIES: : Past Medical History - Social History Smoking Status: Current Every Day Smoker Frequency of alcohol use: Occasional Drug Abuse: Marijuana Family History: Reviewed & Not Pertinent Patient has suicidal ideation: No Patient has homicidal ideation: No - Past Medical History Cardiac Medical History: Reports: Hx Hypercholesterolemia Pulmonary Medical History: Reports: Hx Pneumonia Neurological Medical History: Reports: Hx Seizures - Last 1 about 2015 Psychiatric Medical History: Reports: Hx Bipolar Disorder, Hx Depression Past Surgical History: Reports: Hx Breast Surgery - breast aug, Hx Hysterectomy, Hx Tubal Ligation, Other - Biopsies of the lungs and lymph nodes - Immunizations Immunizations up to date: Yes Hx Diphtheria, Pertussis, Tetanus Vaccination: Yes Hx Pneumococcal Vaccination: 12/06/08 Vertical Provider Document - CONSTITUTIONAL Agree With Documented VS: Yes Exam Limitations: No Limitations General Appearance: No Apparent Distress - INFECTION CONTROL TRAVEL OUTSIDE OF THE [place] IN LAST 30 DAYS: No - HEENT HEENT: Atraumatic, Normocephalic, PERRLA - RESPIRATORY Respiratory: Breath Sounds Normal, No Respiratory Distress - CARDIOVASCULAR Cardiovascular: Regular Rate - MUSCULOSKELETAL/EXTREMETIES Musculoskeletal/Extremeties: FROM - NEURO Level of Consciousness: Awake, Alert, Appropriate - DERM Integumentary: Warm, Dry, No Rash Course - Re-evaluation Re-evalutation: 05/22/19 10:11 Rapid strep test was negative and influenza tests are negative. Chest x-ray is negative for the flu. Dr. Pineda advised to screen for COVID 19. I advised the patient to self quarantine. She will be called with results. She is in agreement with this plan. Follow-up precautions were given. Verbal discharge instructions were given to the patient. They verbalized understanding. They are stable for discharge. - Vital Signs Vital signs: Temp Pulse Resp BP Pulse Ox 97.6 F 91 18 111/69 97 05/22/19 08:26 05/22/19 08:26 05/22/19 08:26 05/22/19 08:26 05/22/19 08:26 Discharge - Discharge Clinical Impression: Cough Fever Qualifiers: Fever type: unspecified Qualified Code(s): R50.9 - Fever, unspecified Condition: Stable Disposition: HOME, SELF-CARE Additional Instructions: You were seen today in the emergency department for a cough and a fever. Please make sure you self quarantine. You will be called for your results on COVID 19. If you end up with a fever, continue to take ibuprofen and Tylenol for your fever. Make sure you wash your hands frequently. Forms: Return to Work
[2019-05-22 09:34] LABS: A TYPE INFLUENZA AG NEGATIVE (NEGATIVE); B INFLUENZA AG NEGATIVE (NEGATIVE)
--- NOTE | 2019-05-22 09:44 | RADIOLOGY REPORT (SQ) ---
EXAM DESCRIPTION: CHEST 2 VIEWS COMPLETED DATE/TIME: 05/22/2019 9:34 am REASON FOR STUDY: fever; cough COMPARISON: 11/06/2014 EXAM PARAMETERS: NUMBER OF VIEWS: two views TECHNIQUE: Digital Frontal and Lateral radiographic views of the chest acquired. RADIATION DOSE: NA LIMITATIONS: none FINDINGS: LUNGS AND PLEURA: No opacities, masses or pneumothorax. No pleural effusion. MEDIASTINUM AND HILAR STRUCTURES: No masses or contour abnormalities. HEART AND VASCULAR STRUCTURES: Heart normal size. No evidence for failure. BONES: No acute findings. HARDWARE: None in the chest. OTHER: No other significant finding. IMPRESSION: NO ACUTE RADIOGRAPHIC FINDING IN THE CHEST. TECHNICAL DOCUMENTATION: JOB ID: [id number] 2010 [employer]- All Rights Reserved Reading location - IP/workstation name: [email or web address]
[2019-05-22 12:03] VITALS: BP 103/67
== END 2019-05-22 12:03 | disposition home or self-care (01) ==
LOC: ER 08:18
DX: R50.9 Fever, unspecified (principal); R05 Cough; J02.9 Acute pharyngitis, unspecified; F17.200 Nicotine dependence, unspecified, uncomplicated; Z20.828 Contact with and (suspected) exposure to other viral communicable diseases
CPT/HCPCS: 36415; 71046; 87070; 87635; 87804; 87880; 99283

== ENCOUNTER 2019-06-08 14:06 | Emergency (ER) | payer OTHER ==
--- NOTE | 2019-06-08 14:20 | ER Document Report ---
ED Medical Screen (RME) - General Chief Complaint: Abdominal Pain Stated Complaint: ABDOMINAL PAIN Mode of Arrival: Ambulatory Information source: Patient Notes: 43-year-old female presented to ED for complaint in the right upper quadrant abdomen. She was seen a couple weeks ago had a CT which showed possible hemochromatosis. She states she has not been able to follow-up with a provider so she came back to the emergency room because she is continuing to have pain. She also had pain in her right fifth finger. She would also like to have that evaluated. I have greeted and performed a rapid initial assessment of this patient. A comprehensive ED assessment and evaluation of the patient, analysis of test results and completion of medical decision making process will be conducted by an additional ED providers. TRAVEL OUTSIDE OF THE [place] IN LAST 30 DAYS: No - Related Data Allergies/Adverse Reactions: metronidazole [From Flagyl] Allergy (Severe, Verified 06/08/19 14:12) Anaphylaxis Metronidazole HCl [From Flagyl] Allergy (Severe, Verified 06/08/19 14:12) Anaphylaxis trazodone [Trazodone] Allergy (Severe, Verified 06/08/19 14:12) ITCHING/HIVES Past Medical History - Social History Chew tobacco use (# tins/day): No Frequency of alcohol use: Social Drug Abuse: Marijuana Family history: Reviewed & Not Pertinent - Past Medical History Cardiac Medical History: Reports: Hx Hypercholesterolemia Pulmonary Medical History: Reports: Hx Pneumonia Neurological Medical History: Reports: Hx Seizures - Last 1 about 2015 Psychiatric Medical History: Reports: Hx Bipolar Disorder, Hx Depression Past Surgical History: Reports: Hx Breast Surgery - breast aug, Hx Hysterectomy, Hx Tubal Ligation, Other - Biopsies of the lungs and lymph nodes - Immunizations Immunizations up to date: Yes Hx Diphtheria, Pertussis, Tetanus Vaccination: Yes Physical Exam - Vital signs Vitals: Temp Pulse Resp BP Pulse Ox 97.9 F 75 14 118/71 100 06/08/19 14:10 06/08/19 14:10 06/08/19 14:10 06/08/19 14:10 06/08/19 14:10 Course - Vital Signs Vital signs: Temp Pulse Resp BP Pulse Ox 97.9 F 75 14 118/71 100 06/08/19 14:10 06/08/19 14:10 06/08/19 14:10 06/08/19 14:10 06/08/19 14:10
--- NOTE | 2019-06-08 14:44 | ER Document Report ---
ED General - General Chief Complaint: Abdominal Pain Stated Complaint: ABDOMINAL PAIN Time Seen by Provider: 06/08/19 14:20 Primary Care Provider: [facility] [Provider Group] - Follow up as needed Mode of Arrival: Ambulatory Notes: 43-year-old female presents with right upper quadrant abdominal pain and right upper back pain. There dyssynchronous. The pain in the belly occurs sometimes after eating. She is had chronic abdominal pain and nausea for years and has had countless endoscopies and GI visits but says she does not know her diagnosis. The patient has a bizarre affect and is a very poor historian. In fact she cannot tell me when the pain began. She denies any different nausea or vomiting, has lost some weight but this is been chronic. No fevers. No diarrhea. TRAVEL OUTSIDE OF THE [place] IN LAST 30 DAYS: No - Related Data Allergies/Adverse Reactions: metronidazole [From Flagyl] Allergy (Severe, Verified 06/08/19 14:12) Anaphylaxis Metronidazole HCl [From Flagyl] Allergy (Severe, Verified 06/08/19 14:12) Anaphylaxis trazodone [Trazodone] Allergy (Severe, Verified 06/08/19 14:12) ITCHING/HIVES Past Medical History - General Information source: Patient - Social History Smoking Status: Current Every Day Smoker Chew tobacco use (# tins/day): No Frequency of alcohol use: Social Drug Abuse: Marijuana Family History: Reviewed & Not Pertinent Patient has suicidal ideation: No Patient has homicidal ideation: No - Past Medical History Cardiac Medical History: Reports: Hx Hypercholesterolemia Pulmonary Medical History: Reports: Hx Pneumonia Neurological Medical History: Reports: Hx Seizures - Last 1 about 2015 Psychiatric Medical History: Reports: Hx Bipolar Disorder, Hx Depression Past Surgical History: Reports: Hx Breast Surgery - breast aug, Hx Hysterectomy, Hx Tubal Ligation, Other - Biopsies of the lungs and lymph nodes - Immunizations Immunizations up to date: Yes Hx Diphtheria, Pertussis, Tetanus Vaccination: Yes Hx Pneumococcal Vaccination: 12/06/08 Review of Systems - Review of Systems Notes: REVIEW OF SYSTEMS GEN: Denies fever, chills, weight loss ENT: Denies sore throat, nasal discharge, ear pain EYES: Denies blurry vision, eye pain, discharge CV: Denies chest pain, palpitations, edema RESP: Denies cough, shortness of breath, wheezing GI: See HPI MSK: Denies joint pain/swelling, edema, SKIN: Depigmented rash on the trunk LYMPH: Denies swollen glands/lymph nodes NEURO: Denies headache, focal weakness or numbness, dizziness PSYCH: Denies depression, suicidal or homicidal ideation PHYSICAL EXAMINATION General: No acute distress, well-nourished Head: Atraumatic, normocephalic ENT: Mouth normal, oropharynx moist, no exudates or tonsillar enlargement Eyes: Conjunctiva normal, pupils equal, lids normal Neck: No JVD, supple, no guarding CVS: Normal rate, regular rhythm, no murmurs Resp: No resp distress, equal and normal breath sounds bilaterally GI: Mild right upper quadrant/epigastric tenderness ding Ext: No deformities, no edema, normal range of motion in upper and lower ext Back: No CVA or midline TTP Skin: Skin with good cap refill. Scattered patches of depigmentation hypopigmentation on the trunk back and shoulders Lymphatic: No lymphadeopathy noted Neuro: Awake, alert. Face symmetric. GCS 15. Physical Exam - Vital signs Vitals: Temp Pulse Resp BP Pulse Ox 97.9 F 75 14 118/71 100 06/08/19 14:10 06/08/19 14:10 06/08/19 14:10 06/08/19 14:10 06/08/19 14:10 Course - Re-evaluation Re-evalutation: 06/08/19 14:43 Chronic recurrent upper abdominal pain nausea vomiting likely IBS versus gastritis but will rule out gallstones with bedside ultrasoundshe is had them in the past. Doubt acute Choley We will check labs liver labs pancreas labs 06/18/19 22:17 Labs wnl. US negative. Nontender. 06/18/19 22:18 Neg UA Given chronicity likely gastritis, ftnl bowel d/o, IBS, etc No red flags, fever, leukocytoss No CT DC home, already bee PO - Vital Signs Vital signs: Temp Pulse Resp BP Pulse Ox 97.0 F 70 16 112/70 100 06/08/19 15:55 06/08/19 15:55 06/08/19 15:55 06/08/19 15:55 06/08/19 15:55 - Laboratory Result Diagrams: 06/08/19 14:43 06/08/19 14:43 Laboratory results interpreted by me: 06/08/19 14:43 Sodium 135.6 L Procedures - Ultrasound/Bedside Ultrasound/Bedside Ultrasound: Normal - on GB stones, thin wall, no PCF< no sonographic lake's Discharge - Discharge Clinical Impression: Pityriasis in adult, Right upper quadrant pain Condition: Good Disposition: HOME, SELF-CARE Instructions: Abdominal Pain ([facility]) Referrals: [facility] [Provider Group] - Follow up as needed
[2019-06-08 15:00] LABS: ABSOLUTE BASOPHILS # (AUTO) 0.1 10^3/uL (0.0-0.2); ABSOLUTE EOSINOPHILS # (AUTO) 0.1 10^3/uL (0.0-0.6); ABSOLUTE LYMPHOCYTES (AUTO) 2.2 10^3/uL (0.5-4.7); ABSOLUTE MONOCYTES (AUTO) 0.4 10^3/uL (0.1-1.4); ABSOLUTE NEUT (AUTO) 4.6 10^3/uL (1.7-8.2); BASOPHILS % (AUTO) 0.7 % (0-2); EOSINOPHILS % (AUTO) 1.9 % (0-6); HEMATOCRIT 39.2 % (36.0-47.0); HEMOGLOBIN 13.8 g/dL (12.0-15.5); LYMPHOCYTES % (AUTO) 29.5 % (13-45); MEAN CORPUSCULAR HEMOGLOBIN 32.4 pg (27.0-33.4); MEAN CORPUSCULAR HGB CONC 35.3 g/dL (32.0-36.0); MEAN CORPUSCULAR VOLUME 92 fl (80-97); MONOCYTES % (AUTO) 5.8 % (3-13); PLATELET COUNT 255 10^3/uL (150-450); RED BLOOD COUNT 4.27 10^6/uL (3.72-5.28); RED CELL DISTRIBUTION WIDTH 13.6 % (11.5-14.0); SEGMENTED NEUTROPHILS % (AUTO) 62.1 % (42-78); TOTAL CELLS COUNTED % (AUTO) 100 %; WHITE BLOOD COUNT 7.4 10^3/uL (4.0-10.5)
[2019-06-08 15:08] LABS: APPEARANCE,URINE SLIGHTLY-CLOUDY; BILIRUBIN,URINE NEGATIVE (NEGATIVE); COLOR,URINE YELLOW; GLUCOSE, URINE NEGATIVE (NEGATIVE); KETONES,URINE NEGATIVE (NEGATIVE); LEUKOCYTE ESTERASE,URINE NEGATIVE (NEGATIVE); NITRITE,URINE NEGATIVE (NEGATIVE); PROTEIN,URINE NEGATIVE (NEGATIVE); URINE SPECIFIC GRAVITY 1.015; UROBILINOGEN,URINE NEGATIVE mg/dL (<2.0)
--- NOTE | 2019-06-08 15:21 | RADIOLOGY REPORT (SQ) ---
EXAM DESCRIPTION: FINGER RIGHT IMAGES COMPLETED DATE/TIME: 06/08/2019 1:39 pm REASON FOR STUDY: pain in 5th finger COMPARISON: None. NUMBER OF VIEWS: Three views. TECHNIQUE: AP, lateral, and oblique images acquired of the right 2nd digit LIMITATIONS: None. FINDINGS: MINERALIZATION: Normal. BONES: No acute fracture or dislocation. No worrisome bone lesions. SOFT TISSUES: No soft tissue swelling. No foreign body. OTHER: No other significant finding. IMPRESSION: NO RADIOGRAPHIC EVIDENCE OF ACUTE INJURY. COMMENT: SITE OF TRAUMA/COMPLAINT MARKED/STAMP COMPLETED: NA TECHNICAL DOCUMENTATION: JOB ID: [id number] 2010 [employer]- All Rights Reserved Reading location - IP/workstation name: [email or web address]
[2019-06-08 15:25] LABS: ALBUMIN 4.3 g/dL (3.5-5.0); ALKALINE PHOSPHATASE 47 U/L (38-126); ANION GAP 6 (5-19); ASPARTATE AMINO TRANSFERASE 17 U/L (14-36); BILIRUBIN,DIRECT 0.2 mg/dL (0.0-0.4); BILIRUBIN,TOTAL 0.3 mg/dL (0.2-1.3); BLOOD UREA NITROGEN 10 mg/dL (7-20); CALCIUM 9.4 mg/dL (8.4-10.2); CARBON DIOXIDE 25 mmol/L (22-30); CHLORIDE 105 mmol/L (98-107); GLUCOSE 95 mg/dL (75-110); POTASSIUM 4.2 mmol/L (3.6-5.0); TOTAL PROTEIN 7.3 g/dL (6.3-8.2)
[2019-06-08 15:57] VITALS: BP 112/70
== END 2019-06-08 15:55 | disposition home or self-care (01) ==
LOC: ER 14:06
DX: R10.11 Right upper quadrant pain (principal); G89.29 Other chronic pain; L21.0 Seborrhea capitis; R11.2 Nausea with vomiting, unspecified; R10.811 Right upper quadrant abdominal tenderness; R10.816 Epigastric abdominal tenderness; M54.9 Dorsalgia, unspecified; R63.4 Abnormal weight loss; F17.200 Nicotine dependence, unspecified, uncomplicated; F12.10 Cannabis abuse, uncomplicated; Z88.1 Allergy status to other antibiotic agents; Z88.8 Allergy status to other drugs, medicaments and biological substances
CPT/HCPCS: 36415; 80053; 81001; 81025; 83690; 85025; 99284

== ENCOUNTER → 2019-08-14 | Outpatient (CLI) | payer OTHER ==
--- NOTE | 2019-08-14 10:07 | RADIOLOGY REPORT (SQ) ---
EXAM DESCRIPTION: U/S ABDOMEN LIMITED W/O DOP IMAGES COMPLETED DATE/TIME: 08/14/2019 9:53 am REASON FOR STUDY: RUQ PAIN R10.11 RIGHT UPPER QUADRANT PAIN COMPARISON: None. TECHNIQUE: Dynamic and static grayscale images acquired of the abdomen and recorded on PACS. Additio nal selected color Doppler and spectral images recorded. LIMITATIONS: None. FINDINGS: PANCREAS: No masses. Visualized pancreatic duct normal caliber. LIVER: The liver measures 16.9 cm in length, at the upper limits of normal for size. LIVER VASCULATURE: Normal directional flow of the main portal vein and hepatic veins. GALLBLADDER: Gallstones. The gallbladder wall measures 1.8 mm, normal wall thickness. No pericholec ystic fluid. ULTRASOUND-DETECTED DUTTON'S SIGN: Negative. INTRAHEPATIC DUCTS AND COMMON DUCT: CBD measures 2.0 mm in diameter, normal. The intrahepatic ducts normal caliber. No filling defects. INFERIOR VENA CAVA: Normal flow. AORTA: No aneurysm. RIGHT KIDNEY: The right kidney measures 11.1 x 3.5 x 5.1 cm, normal size. Normal echogenicity. No so lid or suspicious masses. No hydronephrosis. No calcifications. PERITONEAL AND RIGHT PLEURAL SPACE: No ascites or effusions. OTHER: No other significant findings. IMPRESSION: 1. Gallstones. 2. No evidence of biliary obstruction. TECHNICAL DOCUMENTATION: JOB ID: [id number] 2010 [employer]- All Rights Reserved Reading location - IP/workstation name: [email or web address]
== END ==
LOC: RAD 07:47
PROVIDERS: ATTEND Internal Medicine
DX: K80.80 Other cholelithiasis without obstruction (principal); R10.11 Right upper quadrant pain
CPT/HCPCS: 76705

== ENCOUNTER 2019-09-25 05:27 | Day surgery (SDC) | payer OTHER ==
[2019-09-20 10:28] LABS: HEMATOCRIT 42.8 % (36.0-47.0); HEMOGLOBIN 14.8 g/dL (12.0-15.5); MEAN CORPUSCULAR HEMOGLOBIN 31.6 pg (27.0-33.4); MEAN CORPUSCULAR HGB CONC 34.5 g/dL (32.0-36.0); MEAN CORPUSCULAR VOLUME 92 fl (80-97); PLATELET COUNT 200 10^3/uL (150-450); RED BLOOD COUNT 4.67 10^6/uL (3.72-5.28); RED CELL DISTRIBUTION WIDTH 12.8 % (11.5-14.0); WHITE BLOOD COUNT 10.2 10^3/uL (4.0-10.5)
[2019-09-20 10:58] LABS: ALBUMIN 4.5 g/dL (3.5-5.0); ALKALINE PHOSPHATASE 46 U/L (38-126); ANION GAP 7 (5-19); ASPARTATE AMINO TRANSFERASE 19 U/L (14-36); BILIRUBIN,TOTAL 0.3 mg/dL (0.2-1.3); BLOOD UREA NITROGEN 9 mg/dL (7-20); CALCIUM 9.7 mg/dL (8.4-10.2); CARBON DIOXIDE 27 mmol/L (22-30); CHLORIDE 104 mmol/L (98-107); GLUCOSE 83 mg/dL (75-110); POTASSIUM 4.6 mmol/L (3.6-5.0); TOTAL PROTEIN 7.2 g/dL (6.3-8.2)
--- NOTE | 2019-09-20 12:06 | RADIOLOGY REPORT (SQ) ---
EXAM DESCRIPTION: CHEST PA/LATERAL IMAGES COMPLETED DATE/TIME: 09/20/2019 10:43 am REASON FOR STUDY: PRE-OP COMPARISON: 05/22/2019 EXAM PARAMETERS: NUMBER OF VIEWS: two views TECHNIQUE: Digital Frontal and Lateral radiographic views of the chest acquired. RADIATION DOSE: NA LIMITATIONS: none FINDINGS: LUNGS AND PLEURA: No opacities, masses or pneumothorax. No pleural effusion. Hyperinflati on. MEDIASTINUM AND HILAR STRUCTURES: No masses or contour abnormalities. HEART AND VASCULAR STRUCTURES: Heart normal size. No evidence for failure. BONES: No acute findings. HARDWARE: None in the chest. OTHER: Bilateral breast prostheses. IMPRESSION: No evidence of acute cardiopulmonary process. TECHNICAL DOCUMENTATION: JOB ID: [id number] 2010 [employer]- All Rights Reserved Reading location - IP/workstation name: [email or web address]
--- NOTE | 2019-09-20 13:16 | EKG REPORT ---
SEVERITY:- BORDERLINE ECG - SINUS RHYTHM PROBABLE LEFT ATRIAL ABNORMALITY BORDERLINE LEFT AXIS DEVIATION BORDERLINE INFERIOR Q WAVES : Confirmed by: Raad Michaels MD 20-Sep-2019 13:15:47
[~2019-09-25 05:27] MED LIST: ACETAMINOPHEN 325 MG TABLET PO PRN; CEFOXITIN SODIUM 2 GM in DEXTROSE 5%-WATER 100 ML IV PRN; IBUPROFEN 800 MG in NORMAL SALINE 250 ML IV PRN; LIDOCAINE 0.5% INJ-PF (5 MG/ML) 50 ML SDV SUBCUT PRN
[2019-09-25] MEDS ORDERED: ACETAMINOPHEN 325 MG TABLET ONE (05:44)
[2019-09-25] MEDS ORDERED: FENTANYL CITRATE INJ/PF 100 MCG/2 ML AMPUL ONE (06:58)
[2019-09-25] MEDS ORDERED: MIDAZOLAM 2 MG/2 ML INJ ONE (06:58)
[2019-09-25] MEDS ORDERED: LIDOCAINE 2% INJ (20 MG/ML) 20 ML MDV ONE (06:58)
[2019-09-25] MEDS ORDERED: PROPOFOL INJ 200 MG/20 ML VIAL IV ONE (06:58)
[2019-09-25] MEDS ORDERED: BUPIVACAINE HCL 0.25 % INJ/PF (2.5 MG/1 ML) 30 ML VIAL ONE (07:08)
[2019-09-25] MEDS ORDERED: ONDANSETRON HCL INJ/PF 4 MG/2 ML SDV IV PRN (07:45)
[2019-09-25] MEDS ORDERED: PROMETHAZINE HCL INJ 25 MG/1 ML VIAL IV PRN ×2 (07:45)
[2019-09-25] MEDS ORDERED: MEPERIDINE HCL/PF INJ 25 MG/1 ML DISP.SYRIN IV PRN (07:45)
[2019-09-25] MEDS ORDERED: FENTANYL CITRATE INJ/PF 100 MCG/2 ML AMPUL IV PRN ×3 (07:45)
[2019-09-25] MEDS ORDERED: DIPHENHYDRAMINE HCL 50 MG/ML VIAL IV PRN (07:45)
[2019-09-25] MEDS ORDERED: MORPHINE SULFATE 10 MG/ML INJ IV PRN (07:45)
--- NOTE | 2019-09-25 08:27 | Discharge Summary ---
Discharge Summary (SDC) - Discharge Final Diagnosis: Symptomatic gallstones Date of Surgery: 09/25/19 Discharge Date: 09/25/19 Condition: Stable Forms: ASU Anesthesia D/C Instruction, Discharge POC-Surgical Service Treatment or Instructions: Discharge home. Diet as tolerated. Activity: No lifting greater than 10 pounds x 2 weeks. Follow-up with me at [facility] in 7 to 10 days. Howard 10/3 2 5 mg p.o. every 6 hours as needed for pain. Okay to shower starting on Wednesday. Referrals: MARCUS QIU MD [ACTIVE STAFF] - Discharge Diet: As Tolerated Respiratory Treatments at Home: Deep Breathing/Coughing, Incentive Spirometer Discharge Activity: Balance Activity w/Rest, No Lifting Over 10 Pounds, No Lifting/Push/Pulling Home Care Assistance: None Needed Report the Following to Your Physician Immediately: Shortness of Breath, Nausea, Vomiting, Increase in Pain, Yellow Skin, Fever over 101 Degrees, Unusual Bleeding, Redness, Swelling, Warmth
--- NOTE | 2019-09-25 08:33 | Operative Report ---
Nonrecallable Operative Report DATE OF SURGERY: 09/25/19 PREOPERATIVE DIAGNOSIS: Symptomatic gallstones POSTOPERATIVE DIAGNOSIS: Same as above, chronic cholecystitis OPERATION: Laparoscopic cholecystectomy SURGEON: MARCUS QIU [employer] DRIVER: JENNIFER MORRELL ANESTHESIA: GA TISSUE REMOVED OR ALTERED: Gallbladder COMPLICATIONS: None apparent ESTIMATED BLOOD LOSS: Minimal PROCEDURE: Drains/implants: None. Procedure in detail: After informed consent was obtained, the patient was matt t to the operating room and laid in the supine position. The area of the abdomen was prepped and draped in a normal sterile fashion. A curvilinear infraumbilical incision was created using a 15 blade scalpel. Dissection was carried through the subcutaneous tissues using sharp dissection and blunt dissection. The cicatrix was identified, grasped with a Jordin clamp, and retracted upwards. The linea alba fascia was incised sharply, the abdomen was entered sharply. The balloon trocar was inserted, and pneumoperitoneum was achieved. Subxiphoid 5 mm port was placed under direct laparoscopic visualization. 2 more 5 mm ports were placed in the right upper quadrant in similar fashion. Atraumatic graspers were placed through the 5 mm ports. The gallbladder was retracted cephalad. There is dense amount of chronic appearing inflammation in and around the infundibulum and duodenum. Using sharp dissection the duodenum was freed from the infundibulum of the gallbladder. Once the infundibulum was freed, dissection was begun on the triangle of Calot. The cystic duct and cystic artery were fully visualized and skeletonized, seeing the liver through the triangle. Once the critical view safety was obtained, the cystic duct and cystic artery were clipped and cut with laparoscopic instruments. The gallbladder was then removed from the liver using Bovie electrocautery. The gallbladder was then placed into an Endo Catch bag, and pulled out through the umbilicus. The camera was reinserted. The hilum was inspected. It was found to be free of any leakage of blood or bile. Once this was confirmed, the 5 mm trochars were removed under direct laparoscopic visualization. The infraumbilical trocar was removed, and pneumoperitoneum was relieved. The infraumbilical fascia was closed using 0 Vicryl suture in [id number] fashion. The overlying skin was closed using 4-0 Vicryl Rapide suture in subcuticular fashion. All sponge, instrument, and needle counts were correct x2. Condition: Stable. Jennifer Morrell PA-C was scrubbed and present the entirety of the procedure. She assisted with all portions of the procedure including placement of the trochars, manipulation of the gallbladder, removal of the gallbladder, closure of the fascia, and closure of the skin.
[2019-09-25] MEDS: PROMETHAZINE HCL INJ 25 MG/1 ML VIAL ONE ×2 (08:47→09:05)
[2019-09-25] MEDS ORDERED: HYDROCODONE/ACETAMINOPHEN 10-325 MG TABLET PO PRN (09:18)
[2019-09-25] MEDS ORDERED: HYDROCODONE/ACETAMINOPHEN 10-325 MG TABLET ONE (09:26)
[2019-09-25 10:57] VITALS: BP 112/71
[2019-09-25] MEDS ORDERED: DEXAMETHASONE SOD PHOSPHATE INJ 4 MG/1 ML VIAL ONE (14:55)
[2019-09-25] MEDS ORDERED: ONDANSETRON HCL INJ/PF 4 MG/2 ML SDV ONE (14:55)
[2019-09-25] MEDS ORDERED: ROCURONIUM BROMIDE INJ 50 MG/5 ML VIAL IV ONE (14:55)
[2019-09-25] MEDS ORDERED: SUCCINYLCHOLINE CHLORIDE INJ 200 MG/10 ML VIAL ONE (14:55)
== END 2019-09-25 10:30 | disposition home or self-care (01) ==
LOC: OROUT 05:27
PROVIDERS: ATTEND Surgery
DX: K80.10 Calculus of gallbladder with chronic cholecystitis without obstruction (principal); Z79.899 Other long term (current) drug therapy; G40.909 Epilepsy, unspecified, not intractable, without status epilepticus; F17.210 Nicotine dependence, cigarettes, uncomplicated; Z88.8 Allergy status to other drugs, medicaments and biological substances; Z87.892 Personal history of anaphylaxis; R01.1 Cardiac murmur, unspecified
CPT/HCPCS: 93005; 36415; 85027; 87635; 80053; 88304 ×2; 71046; 93010; 47562; J2250; J3490 ×2; J1100; J3010; J2550; J0330; J2405; J7060; J7050; J2704; J1741; J0694; C9803; 790